=== PATIENT | female | born 1990 | race Caucasian/White ===

== ENCOUNTER 2024-10-09 15:45 | Emergency (ER) | payer OTHER, SELFPAY ==
--- NOTE | ~2024-10-09 | US_ITS ---
CLINICAL HISTORY: pain and swelling Left lower extremity venous ultrasound. Findings: The deep venous system is normally compressible. There is color Doppler flow with augmentation. Impression: No DVT is identified. This document has been electronically signed by: Guilherme Macdonald MD on 10/09/2024 18:35:22
[2024-10-09 16:51] VITALS: BP 129/66; PULSE 95; RESP 18; TEMP 36.5; O2SAT 95; BMI 57.3
--- NOTE | 2024-10-09 16:53 | ED_ITS ---
HPI - General Adult General Chief complaint: Extremity Injury, Lower Stated complaint: latoya. lower leg edema ? cellulitis Time Seen by Provider: 10/10/24 01:18 Source: patient Mode of arrival: ambulatory Limitations: no limitations History of Present Illness ED Provider: HPI narrative: Patient with chronic dependent leg edema with recurrent cellulitis been to different hospital comes here for similar leg swelling with slight warmth feeling of the left leg for last several days no fever no chills patient has had venous Doppler done prior to my evaluation which was normal labs were also normal Related Data Previous Rx's ?Medication ?Instructions ?Recorded cephalexin 500 mg capsule 500 mg PO QID 10 days #40 caps 10/10/24 doxycycline hyclate 100 mg tablet 100 mg PO BID #20 tabs 10/10/24 Allergies Allergy/AdvReac Type Severity Reaction Status Date / Time No Known Allergies Allergy Verified 10/09/24 16:56 Review of Systems 2 Review of Systems: Yes all other systems are reviewed and are negative [facility] Social History Social History Alcohol intake: former Smoked in Last 30 Days: No Use of substances other than those prescribed or required for medical reasons: No Any prior treatment program specific to substance use: No Advance Directives: No Do you have a plan to hurt others: No Plan Patient : No Physical Exam ED Vital Signs: Vital Signs - 24 hr 10/09/24 16:51 10/09/24 22:38 10/10/24 00:33 Temperature 97.7 F 98.2 F 98.1 F Pulse Rate 95 83 97 Respiratory Rate 18 16 16 Blood Pressure 129/66 142/80 H 141/83 H Pulse Oximetry 95 93 94 Oxygen Delivery Method Room Air Room Air Room Air 10/10/24 01:49 Temperature 98.1 F Pulse Rate 97 Respiratory Rate 16 Blood Pressure 141/83 H Pulse Oximetry 94 Oxygen Delivery Method Room Air BMI result Body Mass Index 57.3 Appearance: Alert. Oriented X3. No acute distress. Eyes: PERRLA, No Nystagmus ENT: Pharynx normal. Oral Mucosa moist Neck: Normal inspection. Neck supple. CVS: Normal heart rate and rhythm. Pulses normal. Respiratory: No respiratory distress. Equal air entry bilateral, no wheezing/rales/rhonchi Abdomen: Soft and nontender. Bowel sounds are present, no mass palpable, no CVA tenderness Skin: Skin warm and dry. Normal skin color. Normal skin turgor. Extremities: Bilateral pedal edema, left leg erythematous as compared to right with 1 small blister and lesions suggestive of? MRSA infection No calf tenderness Neuro: Oriented X 3. No motor deficit. No sensory deficit.No cerebellar signs , cranial nerves II-XII intact Course Course Course Narrative: This is a rapid medical exam performed by Yaya Botello NP: Additional HPI, ROS, PE not included below will be deferred to primary provider. Patient is a 33-year-old female with history of PE in the past, on Eliquis presenting with complaint of lower extremity edema. Left leg worse than right, concerned for DVT and cellulitis. Plan: Labs, U/S Medications Administered Discontinued Medications Generic Name Dose Route Start Last Admin Trade Name Freq PRN Reason Stop Dose Admin Cephalexin HCl 500 mg 10/10/24 01:28 10/10/24 01:45 Cephalexin 500 Mg Capsule PO 10/10/24 01:29 500 mg ONCE ONE Administration Doxycycline Monohydrate 100 mg 10/10/24 01:28 10/10/24 01:45 Doxycycline Monohydrate 100 Mg Capsule PO 10/10/24 01:29 100 mg ONCE ONE Administration Medical Decision Making Medical Decision Making [facility] Narrative: Patient has chronic dependent leg edema labs are stable BNP negative for CHF patient already on diuretic her venous Doppler was negative for DVT will prescribe doxycycline cephalexin advised to follow up with her PCP Lab Data MDM Lab Attestation statement: I reviewed the patient's lab results. 10/10/24 00:26 10/10/24 00:27 Labs: Lab Results 10/10/24 10/10/24 Range/Units 00:26 00:27 WBC 8.6 (4.8-10.8) X10*3/uL RBC 4.81 (4.20-5.50) X10*6/uL Hgb 13.3 (12.0-16.0) g/dl Hct 40.5 (37.0-47.0) % MCV 84.2 (80.0-98.0) fL MCH 27.7 (27.0-33.0) pg MCHC 32.8 (31.0-35.0) g/dl RDW 13.7 (11.0-16.0) % Plt Count 281 (160-400) X10*3/uL MPV 9.3 L (9.4-12.3) fL Immature Gran % (Auto) 0.2 (0.0-0.4) % Neut % (Auto) 33.9 L (45-73) % Lymph % (Auto) 52.8 H (20-40) % Levy % (Auto) 8.0 (2-11) % Eos % (Auto) 4.1 H (0-4) % Baso % (Auto) 1.0 (0-2) % Lymph # (Auto) 4.6 (1.2-4.9) X10*3/uL Levy # (Auto) 0.7 (0.1-1.2) X10*3/uL Eos # (Auto) 0.4 (0.0-0.4) X10*3/uL Baso # (Auto) 0.1 (0.0-0.2) X10*3/uL Abs Immat Gran (auto) 0.02 (0.00-0.03) X10*3/uL Absolute Neuts (auto) 2.9 (2.0-8.3) x10*3/uL Absolute Nucleated RBC 0.000 (0.0-0.012) X10*3/uL Nucleated RBC % (auto) 0.0 (0.0-0.2) /100WBC PT 12.8 H (10.9-12.4) SEC INR 1.1 (0.9-1.1) Sodium 141 (135-145) mmol/L Potassium 3.9 (3.3-5.1) mmol/L Chloride 100 (96-108) mmol/L Carbon Dioxide 29 (22-29) mmol/L Anion Gap 16 (12-20) BUN 10 (9-16) mg/dL Creatinine 1.02 (0.5-1.4) mg/dL Estim Creat Clear Calc 126.1 Estimated GFR > 60 Random Glucose 84 (60-115) mg/dL Calcium 9.4 (8.4-10.2) mg/dL Total Bilirubin 0.3 (0.0-1.0) mg/dL AST 49 H (5-31) U/L ALT 45 H (0-31) U/L Alkaline Phosphatase 93 (39-117) U/L C-Reactive Protein 2.55 H (< or = 0.50) mg/dL B-Natriuretic Peptide < 10 (<100) pg/mL Total Protein 8.4 H (6.5-8.0) g/dL Albumin 3.8 (3.5-5.0) g/dL Discharge Plan Discharge Clinical Impression: Chronic cellulitis, Leg edema Patient Disposition: Home, Self-Care Instructions: Cellulitis (ED), Leg Edema (ED) Additional Instructions: Continue your water pill , keep your legs elevated Antibiotics as prescribed Follow up with wound clinic Prescriptions: New cephalexin 500 mg capsule 500 mg PO QID 10 Days Qty: 40 0RF doxycycline hyclate 100 mg tablet 100 mg PO BID Qty: 20 0RF Referrals: Ronald Mittal MD [Physician] - 1 week Interventions: ED Discharge Assessment Last Done: 10/10/24 01:49 Discharge Date/Time: 10/10/24 01:50 Print Language: Vietnamese
[2024-10-09 22:38] VITALS: BP 142/80; PULSE 83; RESP 16; TEMP 36.8; O2SAT 93
[2024-10-10 00:33] VITALS: BP 141/83; PULSE 97; RESP 16; TEMP 36.7; O2SAT 94
[2024-10-10 00:33] LABS: MANUAL DIFF FLAG NO
--- OUTSIDE RECORDS SUMMARY | 2024-10-10 00:34 | XMS_ITS | Encounter Summary ---
Author Organization [facility] Address [address] [place] [address] Care Team Providers Care Water Control Supervisor Name Role Phone Virgil Arellano MD Primary Care Provider [phone] Shanice Deleon MD Primary Care Provider [phone] Virgil Arellano MD Primary Care Provider [phone] Encounter Details Date Type Department Care Team (Late st Contact Info) Description 10/06/[address] Orders [address] [facility] [address] [place] [address] Virgil Arellano MD [address] [place], [place] [id number] Social History Tobacco Use Types Packs/Day Years Used Date Smoking Tobacco: Every Day Cigarettes Smokeless Tobacco: Never Alcohol Use Standard Drinks/Week Comments No 0 (1 standard drink = 0.6 oz pur e alcohol) occ Comments No Sex and Gender Information Value Date Recorded Sex Assigned at Not on file Legal Sex Female 10:18 PM EDT Gender Identity Not on file Sexual Orientation Not on file Occupation Industry Job Start Date Job End Date [employer] Not on file Not on file Not on file documented as of this encounter Progress Notes * Ceci Cabrera - 10/06/2014 3:38 PM ESTQuick Note: See epic note * Ely Arevalo PA - 10/06/2014 3:29 PM Jayy Note: Please let Franck know her WBC count has normalized. Thanks. documented in this encounter Plan of Treatment Not on file documented as of this encounter Goals Goal Patient Goal Type Associated Problems Recent Progress Patient-Stated? Author Blood Pressure < 140/90 Blood Pressure 126/80(2015 9:25 AM EDT) No Rica Early Quit smoking / using tobacco Lifestyle No Rica Early documented as of this encounter Procedures * Due to [place] [employer] law, this organization might not be sharing negative HIV tests. Procedure Name Priority Date/Time Associated Diagnosis Comments CBC INCLUDES DIFFERENTIAL AND PLATELET COUNT Routine 10/06/2014 10:49 AM EST Abnormal complete blood count documented in this encounter Results * Due to [place] [employer] law, this organization might not be sharing negative HIV tests. * CBC INCLUDES DIFFERENTIAL AND PLATELET COUNT (10/06/2014 10:49 AM EST) WBC 7.6 3.8 - 10.8 Thousand/u L [facility] Comment:{WHITE BLOOD CELL CO UNT {[id number]) RBC 4.51 3.80 - 5.10 Million/uL [facility] Comment:{RED BLOOD CELL COUN T {[id number]) Hemoglobin 14.1 11.7 - 15.5 g/dL [facility] Comment:{HEMOGLOBIN {[id number]) Hematocrit 41.2 35.0 - 45.0 % [facility] Comment:{HEMATOCRIT {[id number]) MCV 91.4 80.0 - 100.0 fL [facility] Comment:{MCV {[id number]) MCH 31.4 27.0 - 33.0 pg [facility] Comment:{MCH {[id number]) MCHC 34.3 32.0 - 36.0 g/dL [facility] Comment:{MCHC {[id number]) RDW 12.6 11.0 - 15.0 % [facility] Comment:{RDW {[id number]) PLT 348 140 - 400 Thousand/u L [facility] Comment:{PLATELET COUNT {[id number]) MPV 8.3 7.5 - 11.5 fL [facility] Comment:{MPV {[id number]) Neutrophils # 4347 1500 - 7800 cells/uL [facility] Comment:{ABSOLUTE NEUTROPHIL S {[id number]) Lymphocytes # 2151 850 - 3900 cells/uL [facility] Comment:{ABSOLUTE LYMPHOCYTE S {[id number]) Monocytes # 616 200 - 950 cells/uL [facility] Comment:{ABSOLUTE MONOCYTES {[id number]) Eosinophils # 448 15 - 500 cells/uL [facility] Comment:{ABSOLUTE EOSINOPHIL S {[id number]) Basophils # 38 0 - 200 cells/uL [facility] Comment:{ABSOLUTE BASOPHILS {[id number]) Neutrophils % 57.2 % [facility] Comment:{NEUTROPHILS {[id number]) Lymphocytes % 28.3 % [facility] Comment:{LYMPHOCYTES {[id number]) Monocytes % 8.1 % [facility] Comment:{MONOCYTES {[id number]) Eosinophils % 5.9 % [facility] Comment:{EOSINOPHILS {[id number]) Basophils % 0.5 % [facility] Comment:{BASOPHILS {[id number]) 10/06/2014 10:4 9 AM EST 10/06/2014 2:19 PM EST Narrative Resulting Agency Comment [id number] us Virgil Arellano MD LAB SAME DAY RESULT Final Res ult [facility] [address] [place] [address] documented in this encounter Visit Diagnoses Diagnosis Abnormal complete blood count Other abnormal blood chemistry documented in this encounter Care Teams Water Control Supervisor Relationship Specialty Start Date End Date Virgil Arellano MD [address] [place] [address] PCP - General 11/11/05 08/19/16 Shanice Deleon MD [address] [place] [address] PCP - General Family Medicine 08/20/16 10/25/16 Virgil Arellano MD [address] [place] [address] PCP - General Family Medicine 10/26/16 07/04/17 documented as of this encounter
--- OUTSIDE RECORDS SUMMARY | 2024-10-10 00:34 | XMS_ITS | Encounter Summary ---
Author Organization [facility] Address [address] [place] [address] Care Team Providers Care Spring Clipper Name Role Phone Virgil Arellano MD Primary Care Provider [phone] Shanice Deleon MD Primary Care Provider Virgil Arellano MD Primary Care Provider [phone] Encounter Details Date Type Department Care Team (Late st Contact Info) Description 10/29/[address] [facility] [address] [phone] Mercedes Best PA Social History Tobacco Use Types Packs/Day Years [...] Job Start Date Job End Date Melba donsowmya Not on file Not on file Not on file documented as of this encounter Progress Notes * Mercedes Best PA - 11/02/2014 9:09 AM EDTQuick Note: Normal letter sent/ My chart message sent documented in this encounter Plan of Treatment Not on file documented as of this encounter Goals Goal Patient Goal Type Associated Problems Recent Progress Patient-Stated? Author Blood Pressure < 140/90 Blood Pressure 126/80(2015 9:25 AM EDT) No Rica Early Quit smoking / using tobacco Lifestyle No Rica Early documented as of this encounter Procedures * Due to [place] [employer] law, this organization might not be sharing negative HIV tests. Procedure Name Priority Date/Time Associated Diagnosis Comments STREPTOCOCCUS, GROUP A CULTURE Routine 10/29/2014 4:40 PM EDT Sore throat documented in this encounter Results * Due to [place] [employer] law, this organization might not be sharing negative HIV tests. * STREPTOCOCCUS, GROUP A CULTURE (10/29/2014 4:40 PM EDT) Culture, Streptococci Group A, Throat SEE NOTE [facility] Comment: {STREPTOCOCCUS, GROUP A CULTURE {[id number]) ??STREPTOCOCCUS, GROUP A CULTURE ??MICRO NUMBER: ?[id number] ??TEST STATUS: ? FINAL ??SPECIMEN SOURCE: ?? NOT GIVEN ??SPECIMEN QUALITY: ??ADEQUATE ??RESULT: ?No beta hemolytic Streptococci isolated 10/29/2014 4:40 PM EDT 10/29/2014 9:38 PM EDT Narrative Resulting Agency Comment [id number] Virgil Arellano MD LABORATORY Final Result Performing Organization Address City/State/[facility] Co de Phone Number [facility] [address] [place] [address] documented in this encounter Visit Diagnoses Diagnosis Sore throat Acute pharyngitis documented in this encounter Care Teams Spring Clipper Relationship Specialty Start Date End Date Virigl Arellano MD [address] [place] [address] PCP - General 11/11/05 08/19/16 Shanice Deleon MD [address] [place] [address] PCP - General Family Medicine 08/20/16 10/25/16 Virgil Arellano MD [address] [place] [address] PCP - General Family Medicine 10/26/16 07/04/17 documented as of this encounter
--- OUTSIDE RECORDS SUMMARY | 2024-10-10 00:34 | XMS_ITS | Encounter Summary ---
Author Organization [facility] Address [address] [place] [address] Care Team Providers Care Buck Presser Name Role Phone Virgil Arellano MD Primary Care Provider [phone] Shanice Deleon MD Primary Care Provider [phone] Virgil Arellano MD Primary Care Provider [phone] Encounter Details Date Type Department Care Team (Late st Contact Info) Description 03/24/[address] [facility] [address] [place] [address] Virgil Arellano MD [address] [place] [address] Social History Tobacco Use Types Packs/Day Years Used Date Smoking Tobacco: Every Day Cigarettes Smokeless Tobacco: Never Comments:Less than 1/2 ppd Alcohol Use Standard Drinks/Week Comments No 0 [...] as of this encounter Progress Notes * Carlota Cadena - 03/25/2014 8:14 PM EDTQuick Note: . documented in this encounter Plan of Treatment Not on file documented as of this encounter Procedures * Due to [place] [employer] law, this organization might not be sharing negative HIV tests. Procedure Name Priority Date/Time Associated Diagnosis Comments CBC INCLUDES DIFFERENTIAL AND PLATELET COUNT Routine 03/24/2014 11:55 AM EDT Elevated WBC count documented in this encounter Results * Due to [place] [employer] law, this organization might not be sharing negative HIV tests. * (ABNORMAL) CBC INCLUDES DIFFERENTIAL AND PLATELET COUNT (03/24/2014 11:55 AM EDT) WBC 10.9(H) 3.8 - 10.8 Thousand/ uL [facility] Comment:{WHITE BLOOD CELL CO UNT {[id number]) RBC 4.83 3.80 - 5.10 Million/u L [facility] Comment:{RED BLOOD CELL COUN T {[id number]) Hemoglobin 15.4 11.7 - 15.5 g/dL [facility] Comment:{HEMOGLOBIN {[id number]) Hematocrit 45.2(H) 35.0 - 45.0 % [facility] Comment:{HEMATOCRIT {[id number]) MCV 93.6 80.0 - 100.0 fL [facility] Comment:{MCV {[id number]) MCH 31.8 27.0 - 33.0 pg [facility] Comment:{MCH {[id number]) MCHC 34.0 32.0 - 36.0 g/dL [facility] Comment:{MCHC {[id number]) RDW 12.5 11.0 - 15.0 % [facility] Comment:{RDW {[id number]) PLT 365 140 - 400 Thousand/ uL [facility] Comment:{PLATELET COUNT {[id number]) MPV 8.6 7.5 - 11.5 fL [facility] Comment:{MPV {[id number]) Neutrophils # 7826(H) 1500 - 7800 cells/uL [facility] Comment:{ABSOLUTE NEUTROPHIL S {[id number]) Lymphocytes # 2093 850 - 3900 cells/uL [facility] Comment:{ABSOLUTE LYMPHOCYTE S {[id number]) Monocytes # 403 200 - 950 cells/uL [facility] Comment:{ABSOLUTE MONOCYTES {[id number]) Eosinophils # 534(H) 15 - 500 cells/uL [facility] Comment:{ABSOLUTE EOSINOPHIL S {[id number]) Basophils # 44 0 - 200 cells/uL [facility] Comment:{ABSOLUTE BASOPHILS {[id number]) Neutrophils % 71.8 % [facility] Comment:{NEUTROPHILS {[id number]) Lymphocytes % 19.2 % [facility] Comment:{LYMPHOCYTES {[id number]) Monocytes % 3.7 % [facility] Comment:{MONOCYTES {[id number]) Eosinophils % 4.9 % [facility] Comment:{EOSINOPHILS {[id number]) Basophils % 0.4 % [facility] Comment:{BASOPHILS {[id number]) 03/24/2014 11:5 5 AM EDT 03/24/2014 5:16 PM EDT Narrative Resulting Agency Comment [id number] us Virgil Arellano MD LAB SAME DAY RESULT Final Res ult [facility] [address] [place] [address] documented in this encounter Visit Diagnoses Diagnosis Elevated WBC count Leukocytosis, unspecified documented in this encounter Care Teams Buck Presser Relationship Specialty Start Date End Date Virgil Arellano MD [address] [place] [address] PCP - General 11/11/05 08/19/16 Shanice Deleon MD [address] [place] [address] PCP - General Family Medicine 08/20/16 10/25/16 Virgil Arellano MD [address] [place] [address] PCP - General Family Medicine 10/26/16 07/04/17 documented as of this encounter
--- OUTSIDE RECORDS SUMMARY | 2024-10-10 00:34 | XMS_ITS | Encounter Summary ---
Author Organization [facility] Address [address] [place] [address] Care Team Providers Care Assistant Loan Processor Name Role Phone Virgil Arellano MD Primary Care Provider [phone] Shanice Deleon MD Primary Care Provider [phone] Virgil Arellano MD Primary Care Provider [phone] Encounter Details Date Type Department Care Team (Late st Contact Info) Description 03/07/2010 Orders Only [address] [address] Virgil Arellano MD [address] [place], [place] [phone] Social History Tobacco Use Types Packs/Day Years Used Date Smoking Tobacco: Every Day Cigarettes Comments:Less than 1/2 ppd Alcohol Use Standard Drinks/Week Comments No 0 (1 standard drink = 0.6 oz pur e alcohol) Comments No Sex and Gender Information Value Date Recorded Sex Assigned at Not on file Legal Sex Female 10:18 PM EDT Gender Identity Not on file Sexual Orientation Not on file documented as of this encounter Progress Notes * Virgil Arellano MD - 04/04/2010 6:53 PM EDTQuick Note: Discuss at ov. documented in this encounter Plan of Treatment Pending Results Name Type Priority Associated Diagnoses Date /Time METANEPHRINES, FRACTIONATED, LC/MS/MS, 24-HOUR URINE Lab Routine 03/07/2010 documented as of this encounter Procedures * Due to [place] [employer] law, this organization might not be sharing negative HIV tests. Procedure Name Priority Date/Time Associated Diagnosis Comments NON-CODED [facility] PROCEDURE Routine 03/07/2010 METANEPHRINE UR RAND Routine 03/07/2010 Hypertension METANEPHRINES, FRACTIONATED, LC/MS/MS, 24-HOUR URINE Routine 03/07/2010 documented in this encounter Results * Due to [place] [employer] law, this organization might not be sharing negative HIV tests. * NON-CODED [facility] PROCEDURE (03/07/2010) ASSAY NAME SEE TEXT [facility] Comment:METANEPHRINES, FRACT IONATED, LCMSMS, RANDOM URINE ASSAY RESULT SEE BELOW SEE BELOW [facility] Comment: METANEPHRINE ? 77 ? MCG/G CR THIS SPECIMEN WAS SUBMITTED WITH A PH GREATER THAN 5.0. ??OPTIMUM PH FOR THIS ASSAY IS 1.0-5.0. IMPROPER PRESERVATION MAY COMPROMISE THE VALIDITY OF THE ASSAY. UNABLE TO FLAG ABNORMAL RESULT(S), PLEASE REFER TO REFERENCE RANGE(S) BELOW: REFERENCE RANGES FOR METANEPHRINES, RANDOM URINE: (MCG/G CREATININE) AGE 3 MONTHS-4 YEARS ??NOT ESTABLISHED 5 - 9 YEARS ?106 - 527 10 - 13 YEARS ?34 - 357 14 - 17 YEARS ?24 - 302 18 - 29 YEARS ?39 - 146 30 - 39 YEARS ?32 - 134 40 - 49 YEARS ?33 - 192 >= 50 YEARS ?21 - 153 ASSAY RESULT SEE BELOW SEE BELOW [facility] Comment: NORMETANEPHRINE ? 177 ? MCG/G CR UNABLE TO FLAG ABNORMAL RESULT(S), PLEASE REFER TO REFERENCE RANGE(S) BELOW: REFERENCE RANGES FOR NORMETANEPHRINES, RANDOM URINE: (MCG/G CREATININE) AGE 3 MONTHS-4 YEARS ??NOT ESTABLISHED 5 - 9 YEARS ?149 - 781 10 - 13 YEARS ?38 - 523 14 - 17 YEARS ?14 - 302 18 - 29 YEARS ?91 - 365 30 - 39 YEARS ?67 - 390 40 - 49 YEARS ?85 - 514 >= 50 YEARS ? 108 - 524 ASSAY RESULT SEE BELOW SEE BELOW [facility] Comment: METANEPHRINES, TOTAL ?254 ? MCG/G CR UNABLE TO FLAG ABNORMAL RESULT(S), PLEASE REFER TO REFERENCE RANGE(S) BELOW: REFERENCE RANGES FOR TOTAL METANEPHRINES, RANDOM URINE: (MCG/G CREATININE) AGE 3 MONTHS-4 YEARS ??NOT ESTABLISHED 5 - 9 YEARS ?255 - 1167 10 - 13 YEARS ?86 - 845 14 - 17 YEARS ?39 - 578 18 - 29 YEARS ? 156 - 442 30 - 39 YEARS ?94 - 445 40 - 49 YEARS ? 155 - 608 >= 50 YEARS ? 149 - 603 A FOUR FOLD ELEVATION OF URINARY NORMETANEPHRINES IS EXTREMELY LIKELY TO BE DUE TO A TUMOR, WHILE A FOUR FOLD ELEVATION OF URINARY METANEPHRINES IS HIGHLY SUGGESTIVE, BUT NOT DIAGNOSTIC OF THE TUMOR. MEASUREMENT OF PLASMA METANEPHRINES AND CHROMOGRANIN A IS RECOMMENDED FOR CONFIRMATION. ASSAY RESULT SEE BELOW SEE BELOW [facility] Comment: CREATININE, RANDOM URINE ? 215.8 ?MG/DL UNABLE TO FLAG ABNORMAL RESULT(S), PLEASE REFER TO REFERENCE RANGE(S) BELOW: REFERENCE RANGES FOR CREATININE, RANDOM URINE: AGE ?MG/DL --- ?----- 0-6 MONTHS ?2-32 7-11 MONTHS ? 2-36 1-2 YEARS ? 2-128 3-8 YEARS ? 2-149 9-12 YEARS ?2-183 >12 YEARS: MALE: ? 20-370 FEMALE: ? 20-320 UNITS NOT AVAIL. [facility] REFERENCE RANGE NOT AVAIL. [facility] COMMENT NOT AVAIL. [facility] TEST REFERRED TO NOT AVAIL. [facility] VENDOR TEST CODE [id number] [facility] VENDOR [facility] 03/07/2010 03/07/2010 10: 29 PM EDT Narrative [facility] - 03/30/2010 6:47 PM EDT Report Comments: MET SENT OUT TO [facility] FOR TESTING METANEPHRINES, FRACTIONATED, LC/MS/MS ADDED 03/08/2010 24-HOUR URINE ADDED 03/08/2010 CANCELLED MET TESTING FOR RADNOR. METANEPHRINES BEING PERFORMED AT [facility]. Additional Result Information UNITS: RESULT NOT AVAILABLE REFERENCE RANGE: RESULT NOT AVAILABLE COMMENT: RESULT NOT AVAILABLE TEST REFERRED TO: RESULT NOT AVAILABLE us Virgil Arellano MD LABORATORY Edited [facility] [address] [place] [address] * METANEPHRINE UR RAND (03/07/2010) CREATININE (URINE) TNP MG/DL Q [facility] METANEPHRINE (URINE) TNP [facility] Comment:UNITS: UG/G CREATINI NE NORMETANEPHRINE (URINE) TNP [facility] Comment:UNITS: UG/G CREATINI NE TOTAL METANEPHRINES, RANDOM URINE TNP [facility] Comment:UNITS: UG/G CREATINI NE 03/07/2010 03/07/2010 10: 29 PM EDT Narrative [facility] - 03/08/2010 3:38 PM EDT Report Comments: MET SENT OUT TO [facility] FOR TESTING METANEPHRINES, FRACTIONATED, LC/MS/MS ADDED 03/08/2010 24-HOUR URINE ADDED 03/08/2010 CANCELLED MET TESTING FOR RADNOR. METANEPHRINES BEING PERFORMED AT [facility]. us Virgil Arellano MD LABORATORY Final Result [facility] [address] [place] [address] documented in this encounter Visit Diagnoses Diagnosis Hypertension Unspecified essential hypertension documented in this encounter Care Teams Assistant Loan Processor Relationship Specialty Start Date End Date Virgil Arellano MD [address] [place] [address] PCP - General 11/11/05 08/19/16 Shanice Deleon MD [address] [place] [address] PCP - General Family Medicine 08/20/16 10/25/16 Virgil Arellano MD [address] [place] [address] PCP - General Family Medicine 10/26/16 07/04/17 documented as of this encounter
--- OUTSIDE RECORDS SUMMARY | 2024-10-10 00:34 | XMS_ITS | Encounter Summary ---
Author Organization [facility] Address [address] [place] [address] Care Team Providers Care Tile Edger Name Role Phone Virgil Arellano MD Primary Care Provider [phone] Shanice Deleon MD Primary Care Provider [phone] Virgil Arellano MD Primary Care Provider [phone] Encounter Details Date Type Department Care Team (Late st Contact Info) Description 12/06/2010 [facility] Only [address] [address] Virgil Arellano MD [address] [place], [place] [id number] Social History Tobacco Use Types Packs/Day Years [...] Progress Notes * Virgil Arellano MD - 12/07/2010 7:52 AM EDTQuick Note: Recheck fasting lipids and A1C. documented in this encounter Plan of Treatment Not on file documented as of this encounter Procedures * Due to [place] state law, this organization might not be sharing negative HIV tests. Procedure Name Priority Date/Time Associated Diagnosis Comments CHOLESTEROL, LDL (DIRECT) Routine 12/06/2010 LIPID PANEL + CARDIAC RISK WITH REFLEX TO LDL DIRECT Routine 12/06/2010 Other and unspecified hyperlipidemia CBC W/O DIFFERENTIAL Routine 12/06/2010 Routine general medical examination at a [facility] ASPARTATE AMINOTRANSFERASE (AST), SERUM Routine 12/06/2010 Other and unspecified hyperlipidemia TSH, THYROTROPIN Routine 12/06/2010 Hypothyroidism documented in this encounter Results * Due to [place] state law, this organization might not be sharing negative HIV tests. * CHOLESTEROL, LDL (DIRECT) (12/06/2010) LDL Cholesterol, Direct 119 62 - 130 MG/DL [facility] 12/06/2010 12/06/2010 10: 20 PM EDT Virgil Arellano MD LABORATORY Final Result Performing Organization Address [facility] Co de Phone Number [facility] [address] [place] [address] * TSH (THYROTROPIN) (12/06/2010) TSH, THYROTROPIN 1.212 0.50 - 4.30 UIU/ML [facility] 12/06/2010 12/06/2010 10: 20 PM EDT Virgil Arellano MD LABORATORY Final Result Performing Organization Address [facility]/ZIP Co de Phone Number [facility] [address] [place] [address] * ASPARTATE AMINOTRANSFERASE (AST), SERUM (12/06/2010) AST (SGOT) 19 12 - 32 U/L [facility] 12/06/2010 12/06/2010 10: 20 PM EDT Virgil Arellano MD LAB SAME DAY RESULT Final Res ult Performing Organization Address [facility] Co de Phone Number [facility] [address] [place] [address] * (ABNORMAL) LIPID PANEL + CARDIAC RISK WITH REFLEX TO LDL DIRECT (12/06/2010) CHOLESTEROL, TOTAL 216(H) 125 - 170 MG/DL [facility] TRIGLYCERIDES 472(H) 30 - 149 MG/DL [facility] HDL-CHOLESTEROL 30(L) 40 - 77 MG/DL [facility] LDL-CHOLESTEROL SEE TEXT 62 - 130 MG/DL [facility] Comment: INVALID, TRIG GREATER THAN 400 RISK CATEGORY: ??LDL-CHOLESTEROL GOAL CHD AND CHD RISK EQUIVALENTS: ??<100 MULTIPLE (2+) FACTORS: ??<130 ZERO TO ONE RISK FACTOR: ??<160 CHD RELATIVE RISK RATIO (TOTAL/HDL) 7.20(H) 0.0 - 5.0 [facility] Comment:(2.0 X AVERAGE) 12/06/2010 12/06/2010 10: 20 PM EDT Virgil Arellano MD LABORATORY Final Result Performing Organization Address [facility]/[place] de Phone Number [facility] [address] [place] [address] * (ABNORMAL) CBC W/O DIFFERENTIAL (12/06/2010) WHITE BLOOD COUNT 11.2(H) 3.8 - 10.8 THOUS/UL [facility] RBC 4.70 3.80 - 5.10 MIL/UL [facility] Hemoglobin 14.8 11.7 - 15.5 G/DL [facility] HCT (HEMATOCRIT) 43.6 35.0 - 45.0 % [facility] MCV 92.7 80.0 - 100.0 FL [facility] MCH 31.6 27.0 - 33.0 PG [facility] MCHC 34.0 32.0 - 36.0 G/DL [facility] PLATELETS 337 140 - 400 THOUS/UL [facility] RDW 12.3 11.0 - 15.0 % [facility] MPV 8.6 7.5 - 11.5 FL [facility] 12/06/2010 12/06/2010 10: 20 PM EDT us Virgil Aerllano MD LAB SAME DAY RESULT Final Res ult [facility] [address] [place] [address] documented in this encounter Visit Diagnoses Diagnosis Routine general medical examination at a health care facility Other and unspecified hyperlipidemia Hypothyroidism Unspecified hypothyroidism documented in this encounter Care Teams Tile Edger Relationship Specialty Start Date End Date Virgil Arellano MD [address] [place] [address] PCP - General 11/11/05 08/19/16 Shanice Deleon MD [address] [place] [address] PCP - General Family Medicine 08/20/16 10/25/16 Virgil Arellano MD [address] [place] [address] PCP - General Family Medicine 10/26/16 07/04/17 documented as of this encounter
--- OUTSIDE RECORDS SUMMARY | 2024-10-10 00:34 | XMS_ITS | Encounter Summary ---
Author Organization [facility] Address [address] [place] [address] Care Team Providers Care Feed Blender Name Role Phone Virgil Arellano MD Primary Care Provider Shanice Deleon MD Primary Care Provider [phone] Virgil Arellano MD Primary Care Provider [phone] Encounter Details Date Type Department Care Team (Late st Contact Info) Description 11/25/[address] Orders [address] [facility] [address] [place] [address] Virgil Arellano MD [address] [place] [address] Social History Tobacco Use Types Packs/Day Years [...] on file documented as of this encounter Plan of Treatment Not on file documented as of this encounter Goals Goal Patient Goal Type Associated Problems Recent Progress Patient-Stated? Author Blood Pressure < 140/90 Blood Pressure 126/80(2015 9:25 AM EDT) No Rica Early Quit smoking / using tobacco Lifestyle No Rica Early documented as of this encounter Results * Due to [place] state law, this organization might not be sharing negative HIV tests. * US ABDOMEN COMPLETE FC (11/26/2014 8:26 AM EDT) BI-RADS CODE Anatomical Region Laterality Modality Abdomen Ultrasound 11/26/2014 9:17 AM EDT Narrative 11/26/2014 9:17 AM EDT ABDOMINAL ULTRASOUND ?11/26/2014 Clinical History: Right upper quadrant pain, vomiting and diarrhea for 4 days. Findings: Sonographic assessment of the abdomen is limited by the patient's body habitus and considerable intestinal gas. The liver appears to be upper normal in size. No hepatic mass is identified, but the liver could not be definitively evaluated in its entirety. Color flow Doppler confirms hepatopetal portal vein blood flow. The gallbladder is physiologically distended. Allowing for luminal artifacts, no gallstones are identified. There is no thickening or edema of the gallbladder wall, and sonographic Lemus's sign is reportedly negative. The common bile duct measures 2.9 mm in diameter, and there is no dilatation of the intrahepatic biliary tree. The spleen is normal in texture and size exhibiting a length of 10.7 cm. Right and left renal bipolar lengths are 11.5 cm and 11 cm, respectively. Allowing for the aforementioned technical limitations, no renal abnormalities are identified. The head and body of the pancreas appear unremarkable while the tail is obscured. Segmental visualization of the abdominal aorta reveals normal calibers, and the visualized segments of the inferior vena cava are unremarkable. Impression: No abdominal abnormalities demonstrated but with technical limitations as discussed above. Procedure Note Alok Carlson MD - 11/26/2014 ABDOMINAL ULTRASOUND 11/26/2014 Clinical History: Right upper quadrant pain, vomiting and diarrhea for 4 days. Findings: Sonographic assessment of the abdomen is limited by the patient's body habitus and considerable intestinal gas. The liver appears to be upper normal in size. No hepatic mass is identified, but the liver could not be definitively evaluated in its entirety. Color flow Doppler confirms hepatopetal portal vein blood flow. The gallbladder is physiologically distended. Allowing for luminal artifacts, no gallstones are identified. There is no thickening or edema of the gallbladder wall, and sonographic Lemus's sign is reportedly negative. The common bile duct measures 2.9 mm in diameter, and there is no dilatation of the intrahepatic biliary tree. The spleen is normal in texture and size exhibiting a length of 10.7 cm. Right and left renal bipolar lengths are 11.5 cm and 11 cm, respectively. Allowing for the aforementioned technical limitations, no renal abnormalities are identified. The head and body of the pancreas appear unremarkable while the tail is obscured. Segmental visualization of the abdominal aorta reveals normal calibers, and the visualized segments of the inferior vena cava are unremarkable. Impression: No abdominal abnormalities demonstrated but with technical limitations as discussed above. us Virgil Arellano MD IMG US ORDERABLES Final Resul t documented in this encounter Visit Diagnoses Diagnosis RUQ abdominal pain- Primary Abdominal pain, right upper quadrant RUQ abdominal pain Abdominal pain, right upper quadrant documented in this encounter Care Teams Feed Blender Relationship Specialty Start Date End Date Virgil Arellano MD [address] [place] [address] PCP - General 11/11/05 08/19/16 Shanice Deleon MD [address] [place] [address] PCP - General Family Medicine 08/20/16 10/25/16 Virgil Arellano MD [address] [place] [address] PCP - General Family Medicine 10/26/16 07/04/17 documented as of this encounter
--- OUTSIDE RECORDS SUMMARY | 2024-10-10 00:34 | XMS_ITS | Encounter Summary ---
Author Organization [facility] Address [address] [place] [address] Care Team Providers Care Job Training Specialist Name Role Phone Virgil Arellano MD Primary Care Provider [phone] Shanice Deleon MD Primary Care Provider [phone] Virgil Arellano MD Primary Care Provider [phone] Encounter Details Date Type Department Care Team (Late st Contact Info) Description 01/26/2009 [facility] Only [address] [address] Christina Ayala MD Social History Tobacco Use Types Packs/Day Years Used Date Smoking Tobacco: Never Assessed Comments No Sex and Gender Information Value Date Recorded Sex Assigned at Not on file Legal Sex Female 10:18 PM EDT Gender Identity Not on file Sexual Orientation Not on file documented as of this encounter Plan of Treatment Not on file documented as of this encounter Procedures * Due to [place] law, this organization might not be sharing negative HIV tests. Procedure Name Priority Date/Time Associated Diagnosis Comments TSH, THYROTROPIN Routine 01/26/2009 Abnormal Laboratory Test documented in this encounter Results * Due to [place] law, this organization might not be sharing negative HIV tests. * TSH (THYROTROPIN) (01/26/2009) TSH, THYROTROPIN 1.63 0.50 - 4.30 UIU/ML 01/26/2009 01/26/2009 11: 34 PM EDT Narrative 01/27/2009 6:18 AM EDT Report Comments: HEMOLYSIS PRESENT, CHEMISTRY RESULT(S) MAY BE AFFECTED us Christina Ayala MD LABORATORY Final Re sult documented in this encounter Visit Diagnoses Diagnosis Abnormal laboratory test Other abnormal clinical finding documented in this encounter Care Teams Job Training Specialist Relationship Specialty Start Date End Date Virgil Arellano MD [address] [place] [address] PCP - General 11/11/05 08/19/16 Shanice Deleon MD [address] [place] [address] PCP - General Family Medicine 08/20/16 10/25/16 Virgil Arellano MD [address] [place] [address] PCP - General Family Medicine 10/26/16 07/04/17 documented as of this encounter
--- OUTSIDE RECORDS SUMMARY | 2024-10-10 00:34 | XMS_ITS | Encounter Summary ---
Author Organization [facility] Address [address] [place] [address] Care Team Providers Care Criminal Justice Teacher Name Role Phone Virgil Arellano MD Primary Care Provider [phone] Shanice Deleon MD Primary Care Provider [phone] Virgil Arellano MD Primary Care Provider [phone] Encounter Details Date Type Department Care Team (Late st Contact Info) Description 07/06/2014 Orders [address] [facility] [address] [place] [phone] Ely Arevalo PA [address] [place] [address] Social History Tobacco Use Types Packs/Day Years [...] as of this encounter Progress Notes * Rica Early - 07/09/2014 11:05 AM ESTQuick Note: SEE TM * Ely Stanton PA - 07/09/2014 8:55 AM ESTQuick Note: Strep culture reveals growth of a type of bacteria that typically resolves without antibiotics. If patient is improving, should should complete Pen VK. If patient is not improving, she may d/c antibiotics. Thanks. documented in this encounter Plan of Treatment Not on file documented as of this encounter Goals Goal Patient Goal Type Associated Problems Recent Progress Patient-Stated? Author Blood Pressure < 140/90 Blood Pressure 126/80(2015 9:25 AM EDT) No Rica Early Quit smoking / using tobacco Lifestyle No Rica Early documented as of this encounter Procedures * Due to [place] law, this organization might not be sharing negative HIV tests. Procedure Name Priority Date/Time Associated Diagnosis Comments STREPTOCOCCUS, GROUP A CULTURE Routine 07/06/2014 4:35 PM EST Acute pharyngitis documented in this encounter Results * Due to [place] law, this organization might not be sharing negative HIV tests. * STREPTOCOCCUS, GROUP A CULTURE (07/06/2014 4:35 PM EST) STREPTOCOCCUS, GROUP A CULTURE SEE NOTE [facility] Comment: {STREPTOCOCCUS, GROUP A CULTURE {[id number]) ??STREPTOCOCCUS, GROUP A CULTURE ??MICRO NUMBER: ?[id number] ??TEST STATUS: ? FINAL ??SPECIMEN SOURCE: ?? THROAT ??SPECIMEN QUALITY: ??ADEQUATE ??RESULT: ?Heavy growth of Beta hemolytic streptococcus, not Group A 07/06/2014 4:35 PM EST 07/06/2014 10:23 PM EST Narrative Resulting Agency Comment [id number] Virgil Arellano MD LABORATORY Final Result Performing Organization Address City/State/[facility] Co de Phone Number [facility] [address] [place] [address] documented in this encounter Visit Diagnoses Diagnosis Acute pharyngitis documented in this encounter Care Teams Criminal Justice Teacher Relationship Specialty Start Date End Date Virgil Arellano MD [address] [place] [address] PCP - General 11/11/05 08/19/16 Shanice Deleon MD [address] [place] [address] PCP - General Family Medicine 08/20/16 10/25/16 Virgil Arellano MD [address] [place] [address] PCP - General Family Medicine 10/26/16 07/04/17 documented as of this encounter
--- OUTSIDE RECORDS SUMMARY | 2024-10-10 00:34 | XMS_ITS | Encounter Summary ---
Author Organization [facility] Address [address] [place] [address] Care Team Providers Care Edge Finisher Name Role Phone Virgil Arellano MD Primary Care Provider [phone] Shanice Deleon MD Primary Care Provider [phone] Virgil Arellano MD Primary Care Provider [phone] Encounter Details Date Type Department Care Team (Late st Contact Info) Description 11/25/[address] [facility] [facility] [facility] [address] [place] [phone] Ely Arevalo PA [address] [address] Social History Tobacco Use Types Packs/Day Years [...] as of this encounter Progress Notes * Ely Arevalo PA - 11/26/2014 9:03 PM EDTQuick Note: Noted, no changes needed. * Christina Garcia - 11/26/2014 9:52 AM EDTQuick Note: See TM * Ely Arevalo PA - 11/26/2014 9:44 AM EDTQuick Note: Please let patient know that abdominal ultrasound was somewhat limited due to bowel gas but overallwas normal, gallbladder appeared normal. Blood counts were normal, including white blood cell count(a marker of infection). Electrolytes revealed elevated creatinine at 1.99, indicating dehydration.Sodium, chloride, and calcium slightly low, due to vomiting and diarrhea. Her liver function tests are slightly elevated, which could be due to being overweight. Patient needs to try to push the fluids as much as possible. Please repeat a basic metabolic panel on Sunday. If not able to take PO or is continuing to have vomiting or diarrhea, she does need to be re-evaluated in our office/urgent care and IV fluids may be needed, especially given elevated creatinine. documented in this encounter Plan of Treatment Not on file documented as of this encounter Goals Goal Patient Goal Type Associated Problems Recent Progress Patient-Stated? Author Blood Pressure < 140/90 Blood Pressure 126/80(2015 9:25 AM EDT) No Rica Early Quit smoking / using tobacco Lifestyle No Rica Early documented as of this encounter Procedures * Due to [place] state law, this organization might not be sharing negative HIV tests. Procedure Name Priority Date/Time Associated Diagnosis Comments URINALYSIS, DIP ONLY STAT (All results called to provider) 11/25/2014 3:34 PM EDT Vomiting Diarrhea CULTURE, URINE, ROUTINE Routine 11/25/2014 2:52 PM EDT Vomiting Diarrhea CBC INCLUDES DIFFERENTIAL AND PLATELET COUNT Routine 11/25/2014 2:52 PM EDT Vomiting Diarrhea LIPASE, SERUM Routine 11/25/2014 2:52 PM EDT Vomiting Diarrhea AMYLASE, SERUM Routine 11/25/2014 2:52 PM EDT Vomiting Diarrhea URINALYSIS, MICROSCOPIC Routine 11/25/2014 2:52 PM EDT Vomiting Diarrhea COMPREHENSIVE METABOLIC PANEL WITH GFR Routine 11/25/2014 2:52 PM EDT Vomiting Diarrhea documented in this encounter Results * Due to [place] state law, this organization might not be sharing negative HIV tests. * (ABNORMAL) URINALYSIS, DIP ONLY ( SITE STAT ONLY) (11/25/2014 3:34 PM EDT) COLOR (URINE) jona [facility] (CLIA# [id number]) APPEARANCE (URINE) cloudy [facility] (CLIA# [id number]) SPECIFIC GRAVITY 1.010 1.001 - 1.035 [facility] (CLIA# [id number]) PH (URINE) 6.5 5.0 - 8.0 [facility] (CLIA# [id number]) PROTEIN (URINE) 1+(A) Neg [facility] (CLIA# [id number]) GLUCOSE (URINE) trace(A) Neg [facility] (CLIA# [id number]) Ketones (Urine) negative Neg [facility] (CLIA# [id number]) BILIRUBIN (URINE) negative Neg [facility] (CLIA# [id number]) BLOOD (URINE) trace(A) Neg [facility] (CLIA# [id number]) WBC (URINE) trace(A) Neg [facility] (CLIA# [id number]) NITRITE (URINE) negative Neg [facility] (CLIA# [id number]) Urine specimen obtained by clean catch procedure (specimen) 11/25/2014 3:34 PM EDT Narrative [facility] (CLIA# [id number]) - 11/25/2014 3:36 PM EDT Micro and culture already ordered per provider. Virgil Arellano MD LAB SAME DAY RESULT Final Res ult Performing Organization Address [facility] de Phone Number [facility] (CLIA# [id number]) [address] [place] [address] * CULTURE, URINE, ROUTINE (11/25/2014 2:52 PM EDT) CULTURE SEE NOTE [facility] Comment: {CULTURE, URINE, ROUTINE {[id number]) ??CULTURE, URINE, ROUTINE ??MICRO NUMBER: ?[id number] ??TEST STATUS: ? FINAL ??SPECIMEN SOURCE: ?? URINE ??SPECIMEN QUALITY: ??ADEQUATE ??RESULT: ?Three or more organisms present, each greater ? than 10,000 cu/mL. May represent normal elizabeth ? contamination from external genitalia. No further ? testing is required. 11/25/2014 2:52 PM EDT 11/25/2014 10:19 PM EDT Narrative Resulting Agency Comment [id number] Virgil Arellano MD LABORATORY Final Result Performing Organization Address [facility] Co de Phone Number [facility] [address] [place] [address] * (ABNORMAL) URINALYSIS, MICROSCOPIC (11/25/2014 2:52 PM EDT) WBC (Urine) 10-20(A) < OR = 5 /HPF [facility] Comment:{WBC {[id number]) RBC (Urine Sed) 0-2 < OR = 2 /HPF [facility] Comment:{RBC {[id number]) SQUAMOUS EPITHELIAL CELLS 10-20(A) < OR = 5 /HPF [facility] Comment:{SQUAMOUS EPITHELIAL CELLS {[id number]) Bacteria (Urine) FEW(A) NONE SEEN /HPF [facility] Comment:{BACTERIA {[id number]) HYALINE CAST 0-5(A) NONE SEEN /LPF [facility] Comment:{HYALINE CAST {[id number]) YEAST FEW(A) NONE SEEN /HPF [facility] Comment:{YEAST {[id number]) 11/25/2014 2:52 PM EDT 11/25/2014 10:19 PM EDT Narrative Resulting Agency Comment [id number] us Virgil Arellano MD LAB SAME DAY RESULT Final Res ult Performing Organization Address [facility] Co de Phone Number [facility] [address] [place] [address] * LIPASE, SERUM (11/25/2014 2:52 PM EDT) LIPASE 40 7 - 60 U/L [facility] Comment:{LIPASE {[id number]) 11/25/2014 2:52 PM EDT 11/25/2014 10:19 PM EDT Narrative Resulting Agency Comment [id number] us Virgil Arellano MD LABORATORY Final Result Performing Organization Address [facility] de Phone Number [facility] [address] [place] [address] * AMYLASE, SERUM (11/25/2014 2:52 PM EDT) AMYLASE 22 21 - 101 U/L [facility] Comment:{AMYLASE {[id number]) 11/25/2014 2:52 PM EDT 11/25/2014 10:19 PM EDT Narrative Resulting Agency Comment [id number] us Virgil Arellano MD LAB SAME DAY RESULT Final Res ult Performing Organization Address [facility] Co de Phone Number [facility] [address] [place] [address] * (ABNORMAL) COMPREHENSIVE METABOLIC PANEL WITH GFR (11/25/2014 2:52 PM EDT) GLUCOSE 90 65 - 99 mg/dL [facility] Comment: {GLUCOSE {[id number]) ? Fasting reference interval UREA NITROGEN (BUN) 40(H) 7 - 25 mg/dL [facility] Comment:{UREA NITROGEN (BUN) {[id number]) CREATININE 1.99(H) 0.50 - 1.10 mg/dL [facility] Comment:{CREATININE {[id number]) EGFR NON-AFR. DUTCH 35(L) > OR = 60 mL/min/1. 73m2 [facility] Comment:{eGFR NON-AFR. AMERI CAN {[id number]) EGFR 40(L) > OR = 60 mL/min/1. 73m2 [facility] Comment:{eGFR AMERIC AN {[id number]) BUN/CREATININE RATIO 20 6 - 22 (calc) [facility] Comment:{BUN/CREATININE RATI O {[id number]) SODIUM 132(L) 135 - 146 mmol/L [facility] Comment:{SODIUM {[id number]) POTASSIUM 4.1 3.5 - 5.3 mmol/L [facility] Comment:{POTASSIUM {[id number]) CHLORIDE 97(L) 98 - 110 mmol/L [facility] Comment:{CHLORIDE {[id number]) CARBON DIOXIDE 25 19 - 30 mmol/L [facility] Comment:{CARBON DIOXIDE {[id number]) CALCIUM 8.1(L) 8.6 - 10.2 mg/dL [facility] Comment:{CALCIUM {[id number]) PROTEIN, TOTAL 7.4 6.1 - 8.1 g/dL [facility] Comment:{PROTEIN, TOTAL {[id number]) ALBUMIN 4.4 3.6 - 5.1 g/dL [facility] Comment:{ALBUMIN {[id number]) GLOBULIN 3.0 1.9 - 3.7 g/dL (calc) [facility] Comment:{GLOBULIN {[id number]) ALBUMIN/GLOBULIN RATIO 1.5 1.0 - 2.5 (calc) [facility] Comment:{ALBUMIN/GLOBULIN RA EVAN {[id number]) BILIRUBIN, TOTAL 1.8(H) 0.2 - 1.2 mg/dL [facility] Comment:{BILIRUBIN, TOTAL {[id number]) ALKALINE PHOSPHATASE 44 33 - 115 U/L [facility] Comment:{ALKALINE PHOSPHATAS E {[id number]) AST (SGOT) 51(H) 10 - 30 U/L [facility] Comment:{AST {[id number]) SGPT (ALT) 41(H) 6 - 29 U/L [facility] Comment:{ALT {[id number]) 11/25/2014 2:52 PM EDT 11/25/2014 10:19 PM EDT Narrative [facility] - 11/26/2014 12:35 AM EDT Please note that this estimated GFR does not include an adjustment for the patient's height or weight, and can therefore, be viewed as reliable only for patients with heights between 60 and 72 . More precise quantification using a 24-hour urine sample or height-based algorithm is recommended for patients outside of this range of height and for those individuals with more precise needs for GFR calculation. Resulting Agency Comment [id number] Virgil Arellano MD LABORATORY Final Result [facility] [address] [place] [address] * CBC INCLUDES DIFFERENTIAL AND PLATELET COUNT (11/25/2014 2:52 PM EDT) WBC 8.8 3.8 - 10.8 Thousand/u L [facility] Comment:{WHITE BLOOD CELL CO UNT {[id number]) RBC 4.68 3.80 - 5.10 Million/uL [facility] Comment:{RED BLOOD CELL COUN T {[id number]) HEMOGLOBIN 14.5 11.7 - 15.5 g/dL [facility] Comment:{HEMOGLOBIN {[id number]) HCT (Hematocrit) 42.2 35.0 - 45.0 % [facility] Comment:{HEMATOCRIT {[id number]) MCV 90.1 80.0 - 100.0 fL [facility] Comment:{MCV {[id number]) MCH 30.9 27.0 - 33.0 pg [facility] Comment:{MCH {[id number]) MCHC 34.3 32.0 - 36.0 g/dL [facility] Comment:{MCHC {[id number]) RDW 12.4 11.0 - 15.0 % [facility] Comment:{RDW {[id number]) PLATELETS 292 140 - 400 Thousand/u L [facility] Comment:{PLATELET COUNT {[id number]) MPV 8.7 7.5 - 11.5 fL [facility] Comment:{MPV {[id number]) Absolute Neutrophils 6662 1500 - 7800 cells/uL [facility] Comment:{ABSOLUTE NEUTROPHIL S {[id number]) Absolute Lymphocytes 1302 850 - 3900 cells/uL [facility] Comment:{ABSOLUTE LYMPHOCYTE S {[id number]) Absolute Moncytes 730 200 - 950 cells/uL [facility] Comment:{ABSOLUTE MONOCYTES {[id number]) Absolute Eosinophils 44 15 - 500 cells/uL [facility] Comment:{ABSOLUTE EOSINOPHIL S {[id number]) Absolute Basophils 62 0 - 200 cells/uL [facility] Comment:{ABSOLUTE BASOPHILS {[id number]) NEUTROPHILS 75.7 % [facility] Comment:{NEUTROPHILS {[id number]) LYMPHOCYTES 14.8 % [facility] Comment:{LYMPHOCYTES {[id number]) Monocytes 8.3 % [facility] Comment:{MONOCYTES {[id number]) EOSINOPHILS 0.5 % [facility] Comment:{EOSINOPHILS {[id number]) BASOPHILS 0.7 % [facility] Comment:{BASOPHILS {[id number]) 11/25/2014 2:52 PM EDT 11/25/2014 10:19 PM EDT Narrative Resulting Agency Comment [id number] us Virgil Arellano MD LAB SAME DAY RESULT Final Res ult [facility] [address] [place] [address] documented in this encounter Visit Diagnoses Diagnosis Vomiting Vomiting alone Diarrhea documented in this encounter Care Teams Edge Finisher Relationship Specialty Start Date End Date Virgil Arellano MD [address] [place] [address] PCP - General 11/11/05 08/19/16 Shanice Deloen MD [address] [place] [address] PCP - General Family Medicine 08/20/16 10/25/16 Virgil Arellano MD [address] [place] [address] PCP - General Family Medicine 10/26/16 07/04/17 documented as of this encounter
--- OUTSIDE RECORDS SUMMARY | 2024-10-10 00:34 | XMS_ITS | Encounter Summary ---
Author Organization [facility] Address [address] [place] [address] Care Team Providers Care Geological Aide Name Role Phone Virgil Arellano MD Primary Care Provider [phone] Shanice Deleon MD Primary Care Provider [phone] Virgil Arellano MD Primary Care Provider [phone] Encounter Details Date Type Department Care Team (Late st Contact Info) Description 11/25/2014 Orders Only [facility] [address] [place] [address] Hakan Fagan MD [address] [place] [address] Social History Tobacco Use Types Packs/Day Years [...] of this encounter Procedures * Due to [place] [employer] law, this organization might not be sharing negative HIV tests. Procedure Name Priority Date/Time Associated Diagnosis Comments HCG, (HUMAN CHORIONIC GONADOTROPIN), URINE, QUALITATIVE (SITE - STAT ONLY) Routine 11/25/2014 3:45 PM EDT Nausea vomiting and diarrhea Dehydration documented in this encounter Results * Due to [place] [employer] law, this organization might not be sharing negative HIV tests. * HCG, (HUMAN CHORIONIC GONADOTROPIN), URINE, QUALITATIVE (SITE - STAT ONLY) (11/25/2014 3:45 PM EDT) HCG, Qualitative, Urine negative Neg [facility] (CLIA# [id number]) Urine specimen (specimen) 11/25/2014 3:45 PM EDT us Hakan Fagan MD LAB SAME DAY RESULT Final Result [facility] (CLIA# [id number]) [address] [place] [address] documented in this encounter Visit Diagnoses Diagnosis Nausea vomiting and diarrhea Diarrhea Dehydration documented in this encounter Care Teams Geological Aide Relationship Specialty Start Date End Date Virgil Arellano MD [address] [place] [address] PCP - General 11/11/05 08/19/16 Shanice Deleon MD [address] [place] [address] PCP - General Family Medicine 08/20/16 10/25/16 Virgil Arellano MD [address] [place] [address] PCP - General Family Medicine 10/26/16 07/04/17 documented as of this encounter
--- OUTSIDE RECORDS SUMMARY | 2024-10-10 00:34 | XMS_ITS | Encounter Summary ---
Author Organization [facility] Address [address] [place] [address] Care Team Providers Care Field Service Representative Name Role Phone Virgil Arellano MD Primary Care Provider [phone] Shanice Deleon MD Primary Care Provider [phone] Virgil Arellano MD Primary Care Provider [phone] Encounter Details Date Type Department Care Team (Late st Contact Info) Description 04/03/2011 Orders Only [address] [phone] Virgil Arellano MD [address] [place], [place] [phone] Social History Tobacco Use Types Packs/Day Years [...] Progress Notes * Virgil Arellano MD - 04/04/2011 7:56 AM EDTQuick Note: Discuss at ov. documented in this encounter Plan of Treatment Not on file documented as of this encounter Procedures * Due to [place] [employer] law, this organization might not be sharing negative HIV tests. Procedure Name Priority Date/Time Associated Diagnosis Comments HEMOGLOBIN A1C Routine 04/03/2011 10:13 AM EDT Nonspecific abnormal finding LIPID PANEL + CARDIAC RISK WITH REFLEX TO LDL DIRECT Routine 04/03/2011 10:13 AM EDT Nonspecific abnormal finding TSH, THYROTROPIN Routine 04/03/2011 10:1 3 AM EDT Hypothyroidism documented in this encounter Results * Due to [place] state law, this organization might not be sharing negative HIV tests. * HEMOGLOBIN A1C (04/03/2011 10:13 AM EDT) Hemoglobin A1C 5.3 <5.7 % of total Hgb [facility] Comment: {HEMOGLOBIN A1c {[id number]) ?Decreased risk of diabetes ? <5.7 ? Decreased risk of diabetes ? 5.7-6.0 ?Increased risk of diabetes ? 6.1-6.4 ?Higher risk of diabetes ? > or = 6.5 Consistent with diabetes ?Standards of Medical Care in Diabetes-2010. ?Diabetes Care, 33(Supp 1): S1-S61,2010. Estimated Average Glucose 111 mg/dL (calc) [facility] Comment:{MEAN PLASMA GLUCOSE {[id number]) 04/03/2011 10:1 3 AM EDT 04/03/2011 8:45 PM EDT Narrative Resulting Agency Comment [id number] Virgil Arellano MD LABORATORY Final Result Performing Organization Address [facility]/ZIP Co de Phone Number [facility] [address] [place] [address] * (ABNORMAL) LIPID PANEL + CARDIAC RISK WITH REFLEX TO LDL DIRECT (04/03/2011 10:13 AM EDT) Cholesterol 203(H) 125 - 170 mg/dL [facility] Comment:{CHOLESTEROL, TOTAL {[id number]) HDL Cholesterol 30(L) 36 - 76 mg/dL [facility] Comment:{HDL CHOLESTEROL {[id number]) Triglyceride 153(H) 40 - 136 mg/dL [facility] Comment:{TRIGLYCERIDES {[id number]) LDL Cholesterol 142(H) <110 mg/dL (calc) [facility] Comment: {LDL-CHOLESTEROL {[id number]) Desirable range <100 mg/dL for patients with CHD or diabetes and <70 mg/dL for diabetic patients with known heart disease. CHOL/HDL Ratio 6.8(H) < OR = 5.0 (calc) [facility] Comment:{CHOL/HDLC RATIO {[id number]) 04/03/2011 10:1 3 AM EDT 04/03/2011 8:45 PM EDT Narrative Resulting Agency Comment [id number] Virgil Arellano MD LABORATORY Final Result Performing Organization Address [facility] Co de Phone Number [facility] [address] [place] [address] * TSH (THYROTROPIN) (04/03/2011 10:13 AM EDT) TSH 1.82 mIU/L [facility] Comment: {TSH, 3RD GENERATION {[id number]) Reference Range 1-19 Years ??0.50-4.30 ? Ranges First trimester ?? 0.20-4.70 Second trimester ??0.30-4.10 Third trimester ?? 0.40-2.70 04/03/2011 10:1 3 AM EDT 04/03/2011 8:45 PM EDT Narrative Resulting Agency Comment [id number] us Virgil Arellano MD LABORATORY Final Result [facility] [address] [place] [address] documented in this encounter Visit Diagnoses Diagnosis Hypothyroidism Unspecified hypothyroidism Nonspecific abnormal finding Other nonspecific abnormal finding documented in this encounter Care Teams Field Service Representative Relationship Specialty Start Date End Date Virgil Arellano MD [address] [place] [address] PCP - General 11/11/05 08/19/16 Shanice Deleon MD [address] [place] [address] PCP - General Family Medicine 08/20/16 10/25/16 Virgil Arellano MD [address] [place] [address] PCP - General Family Medicine 10/26/16 07/04/17 documented as of this encounter
--- OUTSIDE RECORDS SUMMARY | 2024-10-10 00:34 | XMS_ITS | Encounter Summary ---
Author Organization [facility] Address [address] [place] [address] Care Team Providers Care Litigation Legal Assistant Name Role Phone Virgil Arellano MD Primary Care Provider [phone] Shanice Deleon MD Primary Care Provider [phone] Virgil Arellano MD Primary Care Provider [phone] Reason for Visit * Reason Onset Date Comments No Show 05/28/2014 Encounter Details Date Type Department Care Team (Late st Contact Info) Description 05/28/[address] [facility] [address] [place] [phone] Mercedes Best PA No Show Social History Tobacco Use Types Packs/Day Years [...] on file documented as of this encounter Miscellaneous Notes * Telephone Encounter - Shanice Lozano - 05/28/2014 1:33 PM EDT Patient no showed their appointment for mood and bp check last week. There was no error made in scheduling. Have sent patient the standard No Show letter. documented in this encounter Plan of Treatment Not on file documented as of this encounter Visit Diagnoses Not on filedocumented in this encounter Care Teams Litigation Legal Assistant Relationship Specialty Start Date End Date Virgil Arellano MD [address] [place] [address] PCP - General 11/11/05 08/19/16 Shanice Deleon MD [address] [place] [address] PCP - General Family Medicine 08/20/16 10/25/16 Virgil Arellano MD [address] [place] [address] PCP - General Family Medicine 10/26/16 07/04/17 documented as of this encounter
--- OUTSIDE RECORDS SUMMARY | 2024-10-10 00:34 | XMS_ITS | Encounter Summary ---
Author Organization [facility] Address [address] [place] [address] Care Team Providers Care Meter Technician Name Role Phone Virgil Arellano MD Primary Care Provider [phone] Shanice Deleon MD Primary Care Provider [phone] Virgil Arellano MD Primary Care Provider [phone] Encounter Details Date Type Department Care Team (Late st Contact Info) Description 07/20/[address] [facility] [address] [place] [phone] Ely Arevalo PA [address] [address] Social History Tobacco Use Types Packs/Day Years [...] encounter Progress Notes * Ceci Cabrera - 07/21/2014 8:59 AM ESTQuick Note: See epic note * Ely Stanton PA - 07/21/2014 7:30 AM ESTQuick Note: Cholesterol panel normal with the exception of a low HDL or good cholesterol. Regular exercise willhelp increase this. Electrolytes normal. CBC reveals slightly elevated WBC but patient did note sherecently got over a stomach bug . Please recheck CBC in two weeks. documented in this encounter Plan of Treatment Not on file documented as of this encounter Goals Goal Patient Goal Type Associated Problems Recent Progress Patient-Stated? Author Blood Pressure < 140/90 Blood Pressure 126/80(2015 9:25 AM EDT) No Rica Early Quit smoking / using tobacco Lifestyle No Rica Early documented as of this encounter Procedures * Due to [place] [employer] law, this organization might not be sharing negative HIV tests. Procedure Name Priority Date/Time Associated Diagnosis Comments CBC INCLUDES DIFFERENTIAL AND PLATELET COUNT Routine 07/20/2014 11:00 AM EST Hypertension Obesity LIPID PANEL WITH REFLEX TO DIRECT LDL Routine 07/20/2014 11:00 AM EST Obesity BASIC METABOLIC PANEL WITH (GFR) Routine 07/20/2014 11:00 AM EST Hypertension documented in this encounter Results * Due to [place] [employer] law, this organization might not be sharing negative HIV tests. * (ABNORMAL) CBC INCLUDES DIFFERENTIAL AND PLATELET COUNT (07/20/2014 11:00 AM EST) WBC 12.6(H) 3.8 - 10.8 Thousand/ uL [facility] Comment:{WHITE BLOOD CELL CO UNT {[id number]) RBC 4.62 3.80 - 5.10 Million/u L [facility] Comment:{RED BLOOD CELL COUN T {[id number]) HEMOGLOBIN 14.2 11.7 - 15.5 g/dL [facility] Comment:{HEMOGLOBIN {[id number]) HCT (Hematocrit) 41.2 35.0 - 45.0 % [facility] Comment:{HEMATOCRIT {[id number]) MCV 89.1 80.0 - 100.0 fL [facility] Comment:{MCV {[id number]) MCH 30.7 27.0 - 33.0 pg [facility] Comment:{MCH {[id number]) MCHC 34.5 32.0 - 36.0 g/dL [facility] Comment:{MCHC {[id number]) RDW 12.6 11.0 - 15.0 % [facility] Comment:{RDW {[id number]) PLATELETS 366 140 - 400 Thousand/ uL [facility] Comment:{PLATELET COUNT {[id number]) MPV 7.9 7.5 - 11.5 fL [facility] Comment:{MPV {[id number]) Absolute Neutrophils 9236(H) 1500 - 7800 cells/uL [facility] Comment:{ABSOLUTE NEUTROPHIL S {[id number]) Absolute Lymphocytes 2381 850 - 3900 cells/uL [facility] Comment:{ABSOLUTE LYMPHOCYTE S {[id number]) Absolute Moncytes 554 200 - 950 cells/uL [facility] Comment:{ABSOLUTE MONOCYTES {[id number]) Absolute Eosinophils 302 15 - 500 cells/uL [facility] Comment:{ABSOLUTE EOSINOPHIL S {[id number]) Absolute Basophils 126 0 - 200 cells/uL [facility] Comment:{ABSOLUTE BASOPHILS {[id number]) NEUTROPHILS 73.3 % [facility] Comment:{NEUTROPHILS {[id number]) LYMPHOCYTES 18.9 % [facility] Comment:{LYMPHOCYTES {[id number]) Monocytes 4.4 % [facility] Comment:{MONOCYTES {[id number]) EOSINOPHILS 2.4 % [facility] Comment:{EOSINOPHILS {[id number]) BASOPHILS 1.0 % [facility] Comment:{BASOPHILS {[id number]) 07/20/2014 11:0 0 AM EST 07/20/2014 4:15 PM EST Narrative Resulting Agency Comment [id number] Virgil Arellano MD LAB SAME DAY RESULT Final Res ult [facility] [address] [place] [address] * BASIC METABOLIC PANEL WITH (GFR) (07/20/2014 11:00 AM EST) GLUCOSE 88 65 - 99 mg/dL [facility] Comment: {GLUCOSE {[id number]) ? Fasting reference interval UREA NITROGEN (BUN) 16 7 - 25 mg/dL [facility] Comment:{UREA NITROGEN (BUN) {[id number]) CREATININE 0.77 0.50 - 1.10 mg/dL [facility] Comment:{CREATININE {[id number]) EGFR NON-AFR. GRENADIAN 110 > OR = 60 mL/min/1. 73m2 [facility] Comment:{eGFR NON-AFR. AMERI CAN {[id number]) EGFR 128 > OR = 60 mL/min/1. 73m2 [facility] Comment:{eGFR AMERIC AN {[id number]) BUN/CREATININE RATIO NOT APPLICABLE 6 - 22 (calc) [facility] Comment:{BUN/CREATININE RATI O {[id number]) SODIUM 137 135 - 146 mmol/L [facility] Comment:{SODIUM {[id number]) POTASSIUM 5.3 3.5 - 5.3 mmol/L [facility] Comment:{POTASSIUM {[id number]) CHLORIDE 101 98 - 110 mmol/L [facility] Comment:{CHLORIDE {[id number]) CARBON DIOXIDE 27 19 - 30 mmol/L [facility] Comment:{CARBON DIOXIDE {[id number]) CALCIUM 9.7 8.6 - 10.2 mg/dL [facility] Comment:{CALCIUM {[id number]) 07/20/2014 11:0 0 AM EST 07/20/2014 4:15 PM EST Narrative [facility] - 07/20/2014 7:59 PM EST Please note that this estimated GFR does [...] needs for GFR calculation. Resulting Agency Comment [id number] Virgil Arellano MD LABORATORY Final Result Performing Organization Address [facility] Co de Phone Number [facility] [address] [place] [address] * (ABNORMAL) LIPID PANEL WITH REFLEX TO DIRECT LDL (07/20/2014 11:00 AM EST) Cholesterol, Total 192 125 - 200 mg/dL [facility] Comment:{CHOLESTEROL, TOTAL {[id number]) HDL CHOLESTEROL 41(L) > OR = 46 mg/dL [facility] Comment:{HDL CHOLESTEROL {[id number]) TRIGLYCERIDES 147 <150 mg/dL [facility] Comment:{TRIGLYCERIDES {[id number]) LDL-CHOLESTEROL 122 <130 mg/dL (calc) [facility] Comment: {LDL-CHOLESTEROL {[id number]) Desirable range <100 mg/dL for patients with CHD or diabetes and <70 mg/dL for diabetic patients with known heart disease. CHOL/HDLC RATIO 4.7 < OR = 5.0 (calc) [facility] Comment:{CHOL/HDLC RATIO {[id number]) Cholesterol Non-HDL 151 mg/dL (calc) [facility] Comment: {NON HDL CHOLESTEROL {[id number]) Target for non-HDL cholesterol is 30 mg/dL higher than LDL cholesterol target. 07/20/2014 11:0 0 AM EST 07/20/2014 4:15 PM EST Narrative Resulting Agency Comment [id number] Virgil Arellano MD LABORATORY Final Result Performing Organization Address City/[facility] Co de Phone Number [facility] [address] [place] [address] documented in this encounter Visit Diagnoses Diagnosis Obesity Obesity, unspecified Hypertension Unspecified essential hypertension documented in this encounter Care Teams Meter Technician Relationship Specialty Start Date End Date Virgil Arellano MD [address] [place] [address] PCP - General 11/11/05 08/19/16 Shanice Deleon MD [address] [place] [address] PCP - General Family Medicine 08/20/16 10/25/16 Virgil Arellano MD [address] [place] [address] PCP - General Family Medicine 10/26/16 07/04/17 documented as of this encounter
--- OUTSIDE RECORDS SUMMARY | 2024-10-10 00:34 | XMS_ITS | Encounter Summary ---
Author Organization [facility] Address [address] [place] [address] Care Team Providers Care Bath Attendant Name Role Phone Virgil Arellano MD Primary Care Provider [phone] Shanice Deleon MD Primary Care Provider [phone] Virgil Arellano MD Primary Care Provider [phone] Encounter Details Date Type Department Care Team (Late st Contact Info) Description 02/03/2010 Orders Only [address] [phone] Virgil Arellano MD [address] [place], [place] [phone] Social History Tobacco Use Types Packs/Day Years Used Date Smoking Tobacco: Never Alcohol Use Standard Drinks/Week Comments No 0 (1 standard drink = 0.6 oz pur e alcohol) Comments No Sex and Gender Information Value Date Recorded Sex Assigned at Not on file Legal Sex Female 10:18 PM EDT Gender Identity Not on file Sexual Orientation Not on file documented as of this encounter Progress Notes * Virgil Arellano MD - 02/14/2010 6:20 PM EDTQuick Note: Reviewed at ov. * Ceci Cabrera - 02/09/2010 9:21 AM EDTQuick Note: See epic note * Jl Odonnell MD - 02/08/2010 5:01 PM EDTQuick Note: Plz ask if pt is having any urinary sx. Ok to send bactrim if she is symptomatic documented in this encounter Plan of Treatment Not on file documented as of this encounter Procedures * Due to [place] [employer] law, this organization might not be sharing negative HIV tests. Procedure Name Priority Date/Time Associated Diagnosis Comments METANEPHRINE UR RAND Routine 02/03/2010 Hypertension CBC 5 PART DIFF Routine 02/03/2010 Hypertension URINALYSIS, COMPLETE (DIP & MICRO) Routine 02/03/2010 Hypertension documented in this encounter Results * Due to [place] [employer] law, this organization might not be sharing negative HIV tests. * (ABNORMAL) URINALYSIS, COMPLETE (DIP & MICRO) (02/03/2010) COLOR (URINE) YELLOW YELLOW [facility] APPEARANCE (URINE) CLOUDY(A) CLEAR [facility] SPECIFIC GRAVITY 1.026 1.001 - 1.035 [facility] PH (URINE) 6.5 5.0 - 8.0 [facility] PROTEIN (URINE) 1+(A) NEG [facility] GLUCOSE (URINE) NEG NEG [facility] Ketones (Urine) NEG NEG [facility] BILIRUBIN (URINE) NEG NEG [facility] BLOOD (URINE) TRACE(A) NEG [facility] WBC (URINE) NEG NEG [facility] NITRITE (URINE) NEG NEG [facility] WBC (URINE) 6-10(A) 0-4/HPF [facility] RBC (Urine Sed) 0 0-3/HPF [facility] EPITHELIAL CELLS.SQUAMOUS (URINE SED) 10-20(A) 0-5/HPF [facility] EPITHELIAL CELLS.TRANSITI ONAL (URINE SED) 0 0-5/HPF [facility] EPITHELIAL CELLS.RENAL (URINE SED) 0 0-3/HPF [facility] BACTERIA (URINE) MANY(A) NONE SEEN [facility] 02/03/2010 02/04/2010 1:3 5 AM EDT Narrative [facility] - 02/08/2010 4:18 PM EDT Report Comments: METANEPHRINES, RANDOM URINE NOT PERFORMED,NO URINE RECEIVED. us Virgil Arellano MD LAB SAME DAY RESULT Final Res ult Performing Organization Address [facility] Co de Phone Number [facility] [address] [place] [phone] * METANEPHRINE UR RAND (02/03/2010) CREATININE (URINE) TNP MG/DL Q [facility] METANEPHRINE (URINE) TNP [facility] Comment:UNITS: UG/G CREATINI NE NORMETANEPHRINE (URINE) TNP [facility] Comment:UNITS: UG/G CREATINI NE TOTAL METANEPHRINES, RANDOM URINE TNP [facility] Comment:UNITS: UG/G CREATINI NE 02/03/2010 02/04/2010 1:3 5 AM EDT Narrative [facility] - 02/08/2010 4:18 PM EDT Report Comments: METANEPHRINES, RANDOM URINE NOT PERFORMED,NO URINE RECEIVED. us Virgil Arellano MD LABORATORY Final Result Performing Organization Address [facility] de Phone Number [facility] [address] [place] [address] * CBC 5 PART DIFF (02/03/2010) WHITE BLOOD COUNT 10.4 4.5 - 13.0 THOUS/UL [facility] RBC 4.63 3.80 - 5.10 MIL/UL [facility] Hemoglobin 14.8 11.5 - 15.3 G/DL [facility] HCT (HEMATOCRIT) 42.0 34.0 - 46.0 % [facility] MCV 90.9 78.0 - 98.0 FL [facility] MCH 32.0 25.0 - 35.0 PG [facility] MCHC 35.2 31.0 - 36.0 G/DL [facility] BAND % 0 0 - 5 % [facility] NEUTROPHIL % 63 48 - 75 % [facility] LYMPHOCYTE % 27 17 - 40 % [facility] MONOCYTE % 5 0 - 14 % [facility] EOSINOPHIL % 5 0 - 5 % [facility] BASOPHIL % 0 0 - 3 % [facility] ATYPICAL LYMPHOCYTE % 0 0 - 5 % [facility] PLATELETS 334 140 - 400 THOUS/UL [facility] BANDS # 0 0 - 750 CELLS/MCL [facility] NEUTROPHILS # 6552 1800 - 8000 CELLS/MCL [facility] LYMPHOCYTES # 2808 1200 - 5200 CELLS/MCL [facility] MONOCYTES # 520 200 - 900 CELLS/MCL [facility] EOSINOPHILS # 520 15 - 550 CELLS/MCL [facility] BASOPHILS # 0 0 - 200 CELLS/MCL [facility] ATYPICAL LYMPHOCYTES # 0 0 - 200 CELLS/MCL [facility] RDW 13.0 11.0 - 15.0 % [facility] MPV 8.2 7.5 - 11.5 FL [facility] 02/03/2010 02/04/2010 1:3 5 AM EDT Narrative [facility] - 02/08/2010 4:18 PM EDT Report Comments: METANEPHRINES, RANDOM URINE NOT PERFORMED,NO URINE RECEIVED. us Virgil Arellano MD LAB SAME DAY RESULT Final Res ult [facility] [address] [place] [address] documented in this encounter Visit Diagnoses Diagnosis Hypertension Unspecified essential hypertension documented in this encounter Care Teams Bath Attendant Relationship Specialty Start Date End Date Virgil Arellano MD [address] [place] [address] PCP - General 11/11/05 08/19/16 Shanice Deleon MD [address] [place] [address] PCP - General Family Medicine 08/20/16 10/25/16 Virgil Arellano MD [address] [place] [address] PCP - General Family Medicine 10/26/16 07/04/17 documented as of this encounter
[2024-10-10 00:35] LABS: Basophils Absolute Auto 0.1 X10*3/uL (0.0-0.2); Eosinophils Absolute Auto 0.4 X10*3/uL (0.0-0.4); Eosinophils Percent Auto 4.1 % (0-4); Hematocrit 40.5 % (37.0-47.0); Hemoglobin 13.3 g/dl (12.0-16.0); Imm Gran Abs Auto 0.02 X10*3/uL (0.00-0.03); Imm Gran Pct Auto 0.2 % (0.0-0.4); Lymphocytes Absolute Auto 4.6 X10*3/uL (1.2-4.9); Lymphocytes Percent Auto 52.8 % (20-40); Mean Corpuscular HGB Conc 32.8 g/dl (31.0-35.0); Mean Corpuscular Hemoglobin 27.7 pg (27.0-33.0); Mean Corpuscular Volume 84.2 fL (80.0-98.0); Mean Platelet Volume 9.3 fL (9.4-12.3); Monocytes Absolute Auto 0.7 X10*3/uL (0.1-1.2); Neutrophils Absolute Auto 2.9 x10*3/uL (2.0-8.3); Neutrophils Percent Auto 33.9 % (45-73); Platelet Count 281 X10*3/uL (160-400); Red Blood Count 4.81 X10*6/uL (4.20-5.50); Red Cell Distribution Width 13.7 % (11.0-16.0); White Blood Count 8.6 X10*3/uL (4.8-10.8)
--- OUTSIDE RECORDS SUMMARY | 2024-10-10 00:35 | XMS_ITS | Encounter Summary ---
Author Organization [facility] Address [address] [place] [address] Care Team Providers Care Rn Cvor Name Role Phone Virgil Arellano MD Primary Care Provider [phone] Shanice Deleon MD Primary Care Provider [phone] Virgil Arellano MD Primary Care Provider [phone] Encounter Details Date Type Department Care Team (Late st Contact Info) Description 11/30/[address] [facility] [address] [place] [address] Virgil Arellano MD [address] [place], [place] [phone] Social History Tobacco Use Types Packs/Day Years [...] encounter Progress Notes * Rica Early - 12/01/2014 8:30 AM EDTQuick Note: SEE TM * Ely Arevalo PA - 12/01/2014 7:34 AM EDTAissatou Note: Please let patient know that her electrolyte panel has normalized and no longer indicates dehydration. I'm glad she is feeling better! documented in this encounter Plan of Treatment Not on file documented as of this encounter Goals Goal Patient Goal Type Associated Problems Recent Progress Patient-Stated? Author Blood Pressure < 140/90 Blood Pressure 126/80(2015 9:25 AM EDT) No Rica Early Quit smoking / using tobacco Lifestyle No Rica Early documented as of this encounter Procedures * Due to [place] [employer] law, this organization might not be sharing negative HIV tests. Procedure Name Priority Date/Time Associated Diagnosis Comments BASIC METABOLIC PANEL WITH (GFR) Routine 11/30/2014 12:38 PM EDT Dehydration documented in this encounter Results * Due to [place] [employer] law, this organization might not be sharing negative HIV tests. * BASIC METABOLIC PANEL WITH (GFR) (11/30/2014 12:38 PM EDT) Glucose 92 65 - 99 mg/dL [facility] Comment: {GLUCOSE {[id number]) ? Fasting reference interval Urea Nitrogen Blood (BUN) 19 7 - 25 mg/dL [facility] Comment:{UREA NITROGEN (BUN) {[id number]) Creatinine 0.83 0.50 - 1.10 mg/dL [facility] Comment:{CREATININE {[id number]) GFR 100 > OR = 60 mL/min/1. 73m2 [facility] Comment:{eGFR NON-AFR. AMERI CAN {[id number]) GFR () 116 > OR = 60 mL/min/1. 73m2 [facility] Comment:{eGFR AMERIC AN {[id number]) BUN/Creatinine Ratio NOT APPLICABLE (calc) [facility] Comment:{BUN/CREATININE RATI O {[id number]) Sodium 141 135 - 146 mmol/L [facility] Comment:{SODIUM {[id number]) Potassium 4.3 3.5 - 5.3 mmol/L [facility] Comment:{POTASSIUM {[id number]) Chloride 104 98 - 110 mmol/L [facility] Comment:{CHLORIDE {[id number]) Carbon dioxide 25 19 - 30 mmol/L [facility] Comment:{CARBON DIOXIDE {[id number]) Calcium 9.6 8.6 - 10.2 mg/dL [facility] Comment:{CALCIUM {[id number]) 11/30/2014 12:3 8 PM EDT 11/30/2014 6:18 PM EDT Narrative [facility] - 11/30/2014 11:47 PM EDT Please note that this estimated GFR [...] needs for GFR calculation. Resulting Agency Comment [id number] us Virgil Arellano MD LABORATORY Final Result Performing Organization Address City/State/[facility] Co de Phone Number [facility] [address] [place] [address] documented in this encounter Visit Diagnoses Diagnosis Dehydration documented in this encounter Care Teams Rn Cvor Relationship Specialty Start Date End Date Virgil Arellano MD [address] [place] [address] PCP - General 11/11/05 08/19/16 Shanice Deleon MD [address] [place] [address] PCP - General Family Medicine 08/20/16 10/25/16 Virgil Arellano MD [address] [place] [address] PCP - General Family Medicine 10/26/16 07/04/17 documented as of this encounter
--- OUTSIDE RECORDS SUMMARY | 2024-10-10 00:35 | XMS_ITS | Encounter Summary ---
Author Organization [facility] Address [address] [place] [address] Care Team Providers Care Hall Porter Name Role Phone Virgil Arellano MD Primary Care Provider [phone] Shanice Deleon MD Primary Care Provider [phone] Virgil Arellano MD Primary Care Provider [phone] Reason for Visit * Reason Onset Date Comments Refill Request 09/28/2015 Encounter Details Date Type Department Care Team (Late st Contact Info) Description 09/28/[address] [facility] [address] [place] [address] Virgil Arellano MD [address] [place], [place] [id number] Refill Request Social History Tobacco Use Types Packs/Day Years [...] encounter Miscellaneous Notes * Telephone Encounter - Anya Darling MA - 09/29/2015 2:56 PM EST Last filled 07/14/15 with 2 refills * Telephone Encounter - Shanice Carlos - 09/29/2015 10:23 AM EST Patient calling back. She says she last filled this on 08/30/15. ? Says it is not too early. Please advise. * Telephone Encounter - Jeni Polk - 09/28/2015 2:20 PM EST Any special requests or concerns? none Faxed/E-prescribed medication renewal request(s) for Franck Rome 24 y.o. female received from pharmacy. Verified and Confirmed pharmacy for patient. Last CPE with this specialty: 04/15/2015 Last OV with this specialty: 09/17/2015 Next OV: Future Appointments Date Time Provider Department Center 10/15/2015 10:30 AM LONDON Sheehan [facility] 10/25/2015 2:15 PM Vida Howard CNM [facility] Pertinent lab results: No labs suggested for any medication orders signed or pended in this encounter. Refresh if any orders changed. Allergies: Fluoxetine BP Readings from Last 1 Encounters: 09/17/15 138/84 Patient Active Problem List Diagnosis Date Noted ??? Tobacco use 04/15/2015 Smokes 1/2 ppd x 7 years. Counseled on smoking cessation. ??? Morbid obesity (HCC) 04/15/2015 Encouraged weight loss, exercise, dietary changes. ??? LSIL (low grade squamous intraepithelial lesion) on Pap smear 06/29/201406/2014 LSIL Plan:f/u in 1 year ??? GERD (gastroesophageal reflux disease) 06/20/2011 ??? Generalized anxiety disorder 09/28/2010 ??? Obesity 05/19/2010 ??? Hypertension 04/13/2010 ??? Dysmenorrhea 08/26/2009 ??? Hypothyroidism 08/03/2009 ??? OTHER AND UNSPECIFIED HYPERLIPIDEMIA 12/24/2007 Current Outpatient Prescriptions on File Prior to Visit Medication Sig Dispense Refill ??? TraZODone HCl 50 MG Tab 1 at bedtime as needed for sleep 30 Tab 1 ??? Ibuprofen 800 MG Tab TAKE ONE TABLET BY MOUTH THREE TIMES DAILY NEEDED FOR PAIN 90 Tab 0 ??? Levothyroxine Sodium 75 MCG Tab TAKE ONE TABLET BY MOUTH ONCE DAILY 30 Tab 8 ??? AmLODIPine Besylate 10 MG Tab TAKE ONE TABLET BY MOUTH ONCE DAILY 30 Tab 11 ??? LORazepam 1 MG Tab TAKE 1 TABLET BY MOUTH IN THE MORNING AND TWO TABLETS BY MOUTH AT NIGHT NEEDED FOR ANXIETY 90 Tab 2 ??? Lisinopril 10 MG Tab Take 1 by mouth daily 30 Tab 11 ??? Escitalopram Oxalate 20 MG Tab 1 by mouth daily 90 Tab 3 documented in this encounter Plan of Treatment Not on file documented as of this encounter Goals Goal Patient Goal Type Associated Problems Recent Progress Patient-Stated? Author Blood Pressure < 140/90 Blood Pressure 126/80(2015 9:25 AM EDT) No Rica Early Quit smoking / using tobacco Lifestyle No Rica Early documented as of this encounter Visit Diagnoses Diagnosis Generalized anxiety disorder- Primary documented in this encounter Care Teams Hall Porter Relationship Specialty Start Date End Date Virgil Arellano MD [address] [place] [address] PCP - General 11/11/05 08/19/16 Shanice Deleon MD [address] [place] [address] PCP - General Family Medicine 08/20/16 10/25/16 Virgil Arellano MD [address] [place] [address] PCP - General Family Medicine 10/26/16 07/04/17 documented as of this encounter
--- OUTSIDE RECORDS SUMMARY | 2024-10-10 00:35 | XMS_ITS | Encounter Summary ---
Author Organization [facility] Address [address] [place] [address] Care Team Providers Care Framework Developer Name Role Phone Virgil Arellano MD Primary Care Provider [phone] Shanice Deleon MD Primary Care Provider [phone] Virgil Arellano MD Primary Care Provider [phone] Reason for Visit * Reason Comments Erroneous encounter-disregard Encounter Details Date Type Department Care Team (Late st Contact Info) Description 06/06/2016 Telephone [facility] [address] [facility] [place] [address] Virgil Arellano MD [address] [place], [place] [phone] Erroneous encounter-disregard Social History Tobacco Use Types Packs/Day Years [...] on filedocumented in this encounter Care Teams Framework Developer Relationship Specialty Start Date End Date Virgil Arellano MD [address] [place] [address] PCP - General 11/11/05 08/19/16 Shanice Deleon MD [address] [place] [address] PCP - General Family Medicine 08/20/16 10/25/16 Virgil Arellano MD [address] [place] [address] PCP - General Family Medicine 10/26/16 07/04/17 documented as of this encounter
--- OUTSIDE RECORDS SUMMARY | 2024-10-10 00:35 | XMS_ITS | Encounter Summary ---
Author Organization [facility] Address [address] [place] [address] Care Team Providers Care Nuclear Scientist Name Role Phone Virgil Arellano MD Primary Care Provider Shanice Deleon MD Primary Care Provider [phone] Virgil Arellano MD Primary Care Provider [phone] Encounter Details Date Type Department Care Team (Late st Contact Info) Description 03/06/2006 Orders Only [address] [id number] Virgil Arellano MD [address] [place] [address] Social History Tobacco Use Types Packs/Day Years Used Date Smoking Tobacco: Never Assessed Comments Unknown Sex and Gender Information Value Date Recorded Sex Assigned at Not on file Legal Sex Female 10:18 PM EDT Gender Identity Not on file Sexual Orientation Not on file documented as of this encounter Plan of Treatment Not on file documented as of this encounter Visit Diagnoses Diagnosis Obesity- Primary Obesity, unspecified documented in this encounter Care Teams Nuclear Scientist Relationship Specialty Start Date End Date Virgil Arellano MD [address] [place], [place] [phone] PCP - General 11/11/05 08/19/16 Shanice Deloen MD [address] [place] [address] PCP - General Family Medicine 08/20/16 10/25/16 iVrgil Arellano MD [address] [place] [address] PCP - General Family Medicine 10/26/16 07/04/17 documented as of this encounter
--- OUTSIDE RECORDS SUMMARY | 2024-10-10 00:35 | XMS_ITS | Encounter Summary ---
Author Organization [facility] Address [address] [place] [address] Care Team Providers Care Nailhead Puncher Name Role Phone Shanice Deleon MD Primary Care Provider [phone] Virgil Arellano MD Primary Care Provider [phone] Reason for Visit * Reason Comments Patient Questions Medication Problem Encounter Details Date Type Department Care Team (Late st Contact Info) Description 10/23/[address] [facility] [address] [place] [address] Virgil Arellano MD [address] [place] [address] Patient Questions ; Medication Problem Social History Tobacco Use Types Packs/Day Years [...] encounter Miscellaneous Notes * Telephone Encounter - Sharonda Cottrell RN - 10/26/2016 12:08 PM EST Pt states that she already is off lorazepam and clonazepam and does not want to be prescribed this in the future. States that she was just calling for FYI PCP. * Telephone Encounter - Darrell Beard RN - 10/26/2016 11:57 AM EST lmom to rtc * Telephone Encounter - Virgil Arellano MD - 10/24/2016 5:20 PM EST Would reduce the dose to 0.5 mg po bid for two weeks, then q d for two weeks. Can then stop. * Telephone Encounter - Danyelle Albert RN - 10/24/2016 5:02 PM EST pss- please change pcp * Telephone Encounter - Danyelle Albert RN - 10/24/2016 5:01 PM EST As stated below, 1 mg po BID. Clonazepam is listed in the chart however pt stated she has not taken this med in years. Pt is interested in weaning off lorazepam bc she is currently taking suboxone and feels med is no longer needed. * Telephone Encounter - Virgil Arellano MD - 10/24/2016 4:18 PM EST Confirm current dosing of lorazepam. Is she asking to change to Clonazepam? Need to change PCP in EPIC> * Telephone Encounter - Danyelle Albert RN - 10/24/2016 3:55 PM EST Pt stated she is Dr Arellano's pt? * Telephone Encounter - Virgil Arellano MD - 10/23/2016 3:35 PM EST Whose patient is she at this time? Should direct question to PCP * Telephone Encounter - Danyelle Albert RN - 10/23/2016 3:31 PM EST Pt stated she is rx lorazepam 1 mg po BID for anxiety. Pt stated she has been taking med x's 4 years. Pt stated she feels like she does not need this med at this time. Pt has weaned herself off in the past with good effect. Pt stated she is currently taking suboxone via suboxone clinic. Pt stated she has not taken clonazepam in years. ( in epic) Please advise * Telephone Encounter - Shanice Carlos - 10/23/2016 1:52 PM EST Patient calling back. Please call. * Telephone Encounter - Shanice Lozano - 10/23/2016 11:41 AM EST Patient wants to stop taking the lorazapam please call. documented in this encounter Plan of Treatment Not on file documented as of this encounter Goals Goal Patient Goal Type Associated Problems Recent Progress Patient-Stated? Author Blood Pressure < 140/90 Blood Pressure 126/80(2015 9:25 AM EDT) No Rica Early Quit smoking / using tobacco Lifestyle No Rica Early documented as of this encounter Visit Diagnoses Not on filedocumented in this encounter Care Teams Nailhead Puncher Relationship Specialty Start Date End Date Shanice Deleon MD [address] [place] [address] PCP - General Family Medicine 08/20/16 10/25/16 Virgil Arellano MD [address] [place] [address] PCP - General Family Medicine 10/26/16 07/04/17 documented as of this encounter
--- OUTSIDE RECORDS SUMMARY | 2024-10-10 00:35 | XMS_ITS | Encounter Summary ---
Author Organization [facility] Address [address] [place] [address] Care Team Providers Care Credit Risk Officer Name Role Phone Virgil Arellano MD Primary Care Provider [phone] Shanice Deleon MD Primary Care Provider [phone] Virgil Arellano MD Primary Care Provider [phone] Encounter Details Date Type Department Care Team (Late st Contact Info) Description 03/24/2014 Orders Only [address] [facility] [address] [place] [phone] Mercedes Best PA Social History Tobacco Use [...] Job Start Date Job End Date Melba sam Not on file Not on file Not on file documented as of this encounter Progress Notes * Rita Montero LPN - 03/26/2014 3:33 PM EDTQuick Note: See telephone note. * Mercedes Best PA - 03/26/2014 3:31 PM EDTQuick Note: Please advise patient positive hsv 1. documented in this encounter Plan of Treatment Not on file documented as of this encounter Procedures * Due to [place] [employer] law, this organization might not be sharing negative HIV tests. Procedure Name Priority Date/Time Associated Diagnosis Comments HEPATITIS B SURFACE ANTIGEN Routine 03/24/2014 11:54 AM EDT Possible exposure to STD HEPATITIS C AB WITH REFLEX TO RNA PCR, SERUM Routine 03/24/2014 11:54 AM EDT Possible exposure to STD HEPATITIS B CORE ANTIBODY, TOTAL, SERUM Routine 03/24/2014 11:54 AM EDT Possible exposure to STD HSV 1 AND 2 IGG HERPESELECT SPECIFIC ANTIBODY Routine 03/24/2014 11:54 AM EDT Possible exposure to STD RPR, (RAPID PLASMIN REAGIN) WITH REFLEX TO FTA, DIAGNOSTIC Routine 03/24/2014 11:54 AM EDT Possible exposure to STD THYROID STIMULATING HORMONE (TSH) WITH FREE T4 REFLEX, SERUM Routine 03/24/2014 11:54 AM EDT Hypothyroidism documented in this encounter Results * Due to [place] [employer] law, this organization might not be sharing negative HIV tests. * RPR, (RAPID PLASMIN REAGIN) WITH REFLEX TO FTA, DIAGNOSTIC (03/24/2014 11:54 AM EDT) Reagin Ab NON-REACT RASHUAN NON-REACT RASHAUN [facility] Comment:{RPR (DX) W/REFL TIT ER AND CONFIRMATORY TESTING {[id number]) 03/24/2014 11:5 4 AM EDT 03/24/2014 5:17 PM EDT Narrative Resulting Agency Comment [id number] us Virgil Arellano MD LABORATORY Final Result Performing Organization Address City/State/[place] Co de Phone Number [facility] [address] [place] [address] * (ABNORMAL) HSV 1 AND 2 IGG HERPESELECT SPECIFIC ANTIBODY (03/24/2014 11:54 AM EDT) Herpes Simplex Virus 1 IgG >5.00(H) [facility] Comment:{HSV 1 IGG TYPE SPEC IFIC AB {[id number]) Herpes simplex virus 2 Ab.IgG <0.90 [facility] Comment: {HSV 2 IGG TYPE SPECIFIC AB {[id number]) ?Value ?Interpretation ?----- ?<0.90 ?Negative ?0.90-1.10 ?Equivocal ?>1.10 ?Positive This assay utilizes recombinant type-specific antigens to differentiate HSV-1 from HSV-2 infections. A positive result cannot distinguish between recent and past infection. If recent HSV infection is suspected but the results are negative or equivocal, the assay should be repeated in 4-6 weeks. The performance characteristics of the assay have not been established for pediatric populations, immunocompromised patients, or screening. 03/24/2014 11:5 4 AM EDT 03/24/2014 5:17 PM EDT Narrative Resulting Agency Comment [id number] Virgil Arellano MD LABORATORY Final Result Performing Organization Address City/State/[place] Co de Phone Number [facility] [address] [place] [address] * HEPATITIS C ANTIBODY, SERUM (03/24/2014 11:54 AM EDT) Hepatitis C virus Ab NON-REACTI VE NON-REACT RASHAUN [facility] Comment:{HEPATITIS C ANTIBOD Y {[id number]) Hepatitis C virus Ab Signal/Cutoff 0.02 <1.00 [facility] Comment:{SIGNAL TO CUT-OFF { [id number]) 03/24/2014 11:5 4 AM EDT 03/24/2014 5:17 PM EDT Narrative Resulting Agency Comment [id number] us Virgil Arellano MD LABORATORY Final Result Performing Organization Address [facility] de Phone Number [facility] [address] [place] [address] * HEPATITIS B CORE ANTIBODY, TOTAL, SERUM (03/24/2014 11:54 AM EDT) Hepatitis B virus core Ab NON-REACTI VE NON-REACT RASHAUN [facility] Comment:{HEPATITIS B CORE AB TOTAL {[id number]) 03/24/2014 11:5 4 AM EDT 03/24/2014 5:17 PM EDT Narrative Resulting Agency Comment [id number] us Virgil Arellano MD LABORATORY Final Result Performing Organization Address [facility] de Phone Number [facility] [address] [place] [address] * HEPATITIS B SURFACE ANTIGEN (03/24/2014 11:54 AM EDT) Hepatitis B virus surface Ag NON-REACTI VE NON-REACT RASHAUN [facility] Comment:{HEPATITIS B SURFACE ANTIGEN {[id number]) 03/24/2014 11:5 4 AM EDT 03/24/2014 5:17 PM EDT Narrative Resulting Agency Comment [id number] us Virgil Arellano MD LABORATORY Final Result Performing Organization Address City/State/[place] Co de Phone Number [facility] [address] [place] [address] * THYROID STIMULATING HORMONE (TSH) WITH FREE T4 REFLEX, SERUM (03/24/2014 11:54 AM EDT) TSH 1.64 mIU/L [facility] Comment: {TSH W/REFLEX TO FT4 {[id number]) ?Reference Range ?> or = 20 Years ??0.40-4.50 ? Ranges ?First trimester ?0.26-2.66 ?Second trimester ?? 0.55-2.73 ?Third trimester ?0.43-2.91 03/24/2014 11:5 4 AM EDT 03/24/2014 5:17 PM EDT Narrative Resulting Agency Comment [id number] Virgil Arellano MD LABORATORY Final Result Performing Organization Address [facility]/[place] Co de Phone Number [facility] [address] [place] [address] documented in this encounter Visit Diagnoses Diagnosis Hypothyroidism- Primary Unspecified hypothyroidism Possible exposure to STD Other specified personal history presenting hazards to health documented in this encounter Care Teams Credit Risk Officer Relationship Specialty Start Date End Date Virgil Arellano MD [address] [place] [address] PCP - General 11/11/05 08/19/16 Shaince Deleon MD [address] [place] [address] PCP - General Family Medicine 08/20/16 10/25/16 Virgil Arellano MD [address] [place] [address] PCP - General Family Medicine 10/26/16 07/04/17 documented as of this encounter
--- OUTSIDE RECORDS SUMMARY | 2024-10-10 00:35 | XMS_ITS | Encounter Summary ---
Author Organization [facility] Address [address] [place] [address] Care Team Providers Care Forming Machine Operator Name Role Phone Virgil Arellano MD Primary Care Provider [phone] Shanice Deleon MD Primary Care Provider [phone] Virgil Arellano MD Primary Care Provider Encounter Details Date Type Department Care Team (Late st Contact Info) Description 06/23/2013 Orders Only [address] [phone] Virgil Arellano MD [address] [place], [place] [phone] Social History Tobacco Use Types Packs/Day Years [...] Progress Notes * Virgil Arellano MD - 06/24/2013 4:38 AM ESTQuick Note: Discuss at ov. documented in this encounter Plan of Treatment Not on file documented as of this encounter Procedures * Due to [place] state law, this organization might not be sharing negative HIV tests. Procedure Name Priority Date/Time Associated Diagnosis Comments ALANINE AMINOTRANSFERASE (ALT), SERUM Routine 06/23/2013 10:06 AM EST Hyperlipemia ASPARTATE AMINOTRANSFERASE (AST), SERUM Routine 06/23/2013 10:06 AM EST Hyperlipidemia LIPID PANEL WITH REFLEX TO DIRECT LDL Routine 06/23/2013 10:06 AM EST Diabetes mellitus (HCC) Hypertension BASIC METABOLIC PANEL WITH (GFR) Routine 06/23/2013 10:06 AM EST Hypertension documented in this encounter Results * Due to [place] state law, this organization might not be sharing negative HIV tests. * ASPARTATE AMINOTRANSFERASE (AST), SERUM (06/23/2013 10:06 AM EST) AST (SGOT) 19 10 - 30 U/L [facility] Comment:{AST {[id number]) 06/23/2013 10:0 6 AM EST 06/23/2013 3:52 PM EST Narrative Resulting Agency Comment [id number] us Virgil Arellano MD LAB SAME DAY RESULT Final Res ult Performing Organization Address City/State/[facility] Co de Phone Number [facility] [address] [place] [address] * ALANINE AMINOTRANSFERASE (ALT), SERUM (06/23/2013 10:06 AM EST) ALT (SGPT) 23 6 - 29 U/L [facility] Comment:{ALT {[id number]) 06/23/2013 10:0 6 AM EST 06/23/2013 3:52 PM EST Narrative Resulting Agency Comment [id number] us Virgil Arellano MD LAB SAME DAY RESULT Final Res ult Performing Organization Address [facility] Co de Phone Number [facility] [address] [place] [address] * (ABNORMAL) LIPID PANEL WITH REFLEX TO DIRECT LDL (06/23/2013 10:06 AM EST) Cholesterol 200 125 - 200 mg/dL [facility] Comment:{CHOLESTEROL, TOTAL {[id number]) HDL Cholesterol 29(L) > OR = 46 mg/dL [facility] Comment:{HDL CHOLESTEROL {[id number]) Triglyceride 334(H) <150 mg/dL [facility] Comment:{TRIGLYCERIDES {[id number]) LDL Cholesterol 104 <130 mg/dL (calc) [facility] Comment: {LDL-CHOLESTEROL {[id number]) Desirable range <100 mg/dL for patients with CHD or diabetes and <70 mg/dL for diabetic patients with known heart disease. CHOL/HDL Ratio 6.9(H) < OR = 5.0 (calc) [facility] Comment:{CHOL/HDLC RATIO {[id number]) Cholesterol Non-HDL 171(H) mg/dL (calc) [facility] Comment: {NON HDL CHOLESTEROL {[id number]) Target for non-HDL cholesterol is 30 mg/dL higher than LDL cholesterol target. 06/23/2013 10:0 6 AM EST 06/23/2013 3:52 PM EST Narrative Resulting Agency Comment [id number] us Virgil Arellano MD LABORATORY Final Result Performing Organization Address [facility]/ZIP Co de Phone Number [facility] [address] [place] [address] * BASIC METABOLIC PANEL WITH (GFR) (06/23/2013 10:06 AM EST) Glucose 83 65 - 99 mg/dL [facility] Comment: {GLUCOSE {[id number]) ? Fasting reference interval Urea Nitrogen Blood (BUN) 12 7 - 25 mg/dL [facility] Comment:{UREA NITROGEN (BUN) {[id number]) Creatinine 0.63 0.50 - 1.10 mg/dL [facility] Comment:{CREATININE {[id number]) GFR 129 > OR = 60 mL/min/1. 73m2 [facility] Comment:{eGFR NON-AFR. AMERI CAN {[id number]) GFR () 150 > OR = 60 mL/min/1. 73m2 [facility] Comment:{eGFR AMERIC AN {[id number]) BUN/Creatinine Ratio NOT APPLICABLE (calc) [facility] Comment:{BUN/CREATININE RATI O {[id number]) Sodium 139 135 - 146 mmol/L [facility] Comment:{SODIUM {[id number]) Potassium 3.7 3.5 - 5.3 mmol/L [facility] Comment:{POTASSIUM {[id number]) Chloride 104 98 - 110 mmol/L [facility] Comment:{CHLORIDE {[id number]) Carbon dioxide 28 19 - 30 mmol/L [facility] Comment:{CARBON DIOXIDE {[id number]) Calcium 9.7 8.6 - 10.2 mg/dL [facility] Comment:{CALCIUM {[id number]) 06/23/2013 10:0 6 AM EST 06/23/2013 3:52 PM EST Narrative [facility] - 06/23/2013 6:50 PM EST Please note that this estimated [...] needs for GFR calculation. Resulting Agency Comment [id number] us Virgil Arellano MD LABORATORY Final Result [facility] [address] [place] [address] documented in this encounter Visit Diagnoses Diagnosis Hypertension Unspecified essential hypertension Diabetes mellitus (HCC) Type II or unspecified type diabetes mellitus without mention of complication, not stated as uncontrolled Hyperlipemia Other and unspecified hyperlipidemia Hyperlipidemia Other and unspecified hyperlipidemia documented in this encounter Care Teams Forming Machine Operator Relationship Specialty Start Date End Date Virgil Arellano MD [address] [place] [address] PCP - General 11/11/05 08/19/16 Shanice Deleon MD [address] [place] [address] PCP - General Family Medicine 08/20/16 10/25/16 Virgil Arellano MD [address] [place] [address] PCP - General Family Medicine 10/26/16 07/04/17 documented as of this encounter
--- OUTSIDE RECORDS SUMMARY | 2024-10-10 00:35 | XMS_ITS | Encounter Summary ---
Author Organization [facility] Address [address] [place] [address] Care Team Providers Care Photovoltaic Subcontractor Name Role Phone Virgil Arellano MD Primary Care Provider [phone] Shanice Deleon MD Primary Care Provider [phone] Virgil Arellano MD Primary Care Provider [phone] Encounter Details Date Type Department Care Team (Late st Contact Info) Description 08/09/2015 Orders Only [facility] [address] [place] [address] Virgil Arellano MD [address] [place] [address] Social History Tobacco Use Types Packs/Day Years [...] as of this encounter Progress Notes * Sharonda Cottrell RN - 08/16/2015 11:24 AM ESTQuick Note: See TM 08/16/15 * Ely Arevalo PA - 08/16/2015 8:14 AM ESTQuick Note: Please inform patient of negative syphilis. * Sharonda Cottrell RN - 08/11/2015 12:37 PM ESTQuick Note: See TM 08/11/15 * Eliana De Jesus PA - 08/11/2015 11:05 AM ESTQuick Note: 1. HIV negative 2. Chlamydia and gonorrhea not detected 3. Hepatitis B and C non-reactive 4. 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 documented in this encounter Plan of Treatment Not on file documented as of this encounter Goals Goal Patient Goal Type Associated Problems Recent Progress Patient-Stated? Author Blood Pressure < 140/90 Blood Pressure 126/80(2015 9:25 AM EDT) No Rica Early Quit smoking / using tobacco Lifestyle No Rica Early documented as of this encounter Procedures * Due to [place] state law, this organization might not be sharing negative HIV tests. Procedure Name Priority Date/Time Associated Diagnosis Comments SYPHILIS (FTA) ANTIBODY CASCADING REFLEX TO RPR/TITER (*PREFERRED SCREEN*) Routine 08/09/2015 12:56 PM EST Screen for STD (sexually transmitted disease) CHLAMYDIA TRACHOMATIS/N. GONORRHOEAE (GC) RNA, TMA (URINE) Routine 08/09/2015 12:56 PM EST Screen for STD (sexually transmitted disease) HEPATITIS B SURFACE ANTIGEN Routine 08/09/2015 12:56 PM EST Screen for STD (sexually transmitted disease) HEPATITIS C AB WITH REFLEX TO RNA PCR, SERUM Routine 08/09/2015 12:56 PM EST Screen for STD (sexually transmitted disease) HSV 1 AND 2 IGG HERPESELECT SPECIFIC ANTIBODY Routine 08/09/2015 12:56 PM EST Screen for STD (sexually transmitted disease) documented in this encounter Results * Due to [place] state law, this organization might not be sharing negative HIV tests. * SYPHILIS (FTA) ANTIBODY CASCADING REFLEX TO RPR/TITER (*PREFERRED SCREEN*) (08/09/2015 12:56 PM EST) Treponema pallidum Ab Negative Negative [facility] Comment: {T. PALLIDUM AB, EIA {[id number]) No antibodies to T. pallidum (the agent causing syphilis) were detected in the specimen. This result, however, does not exclude very recent T. pallidum infection; testing of a second specimen, collected 2-4 weeks after this specimen, is recommended if the index of suspicion for recent infection is high. 08/09/2015 12:5 6 PM EST 08/09/2015 4:26 PM EST Narrative Resulting Agency Comment [id number] Eliana CALLAHAN [facility] Final Result [facility] [address] [place] [address] * (ABNORMAL) HSV 1 AND 2 IGG HERPESELECT SPECIFIC ANTIBODY (08/09/2015 12:56 PM EST) Herpes Simplex Virus 1 IgG >5.00(H) [facility] Comment:{HSV 1 IGG TYPE SPEC IFIC AB {[id number]) Herpes simplex virus 2 Ab.IgG <0.90 [facility] Comment: {HSV 2 IGG TYPE SPECIFIC AB {[id number]) ?Value ?Interpretation ?----- ?<0.90 ?Negative ?0.90-1.10 ?Equivocal [...] for pediatric populations, immunocompromised patients, or screening. 08/09/2015 12:5 6 PM EST 08/09/2015 4:26 PM EST Narrative Resulting Agency Comment [id number] Eliana CALLAHAN [facility] Final Result Performing Organization Address [facility] de Phone Number [employer] [address] [place] [address] * HEPATITIS C AB WITH REFLEX TO RNA PCR, SERUM (08/09/2015 12:56 PM EST) Hepatitis C virus Ab NON-REACTI VE NON-REACT RASHAUN [facility] Comment:{HEPATITIS C ANTIBOD Y {[id number]) Hepatitis C virus Ab Signal/Cutoff 0.03 <1.00 [facility] Comment:{SIGNAL TO CUT-OFF { [id number]) 08/09/2015 12:5 6 PM EST 08/09/2015 4:26 PM EST Narrative Resulting Agency Comment [id number] Eliana [facility]AH[facility] Final Result Performing Organization Address [facility]/ZIP Co de Phone Number [facility] [address] [place] [address] * HEPATITIS B SURFACE ANTIGEN (08/09/2015 12:56 PM EST) Hepatitis B virus surface Ag NON-REACTI VE NON-REACT RASHAUN [facility] Comment:{HEPATITIS B SURFACE ANTIGEN {[id number]) 08/09/2015 12:5 6 PM EST 08/09/2015 4:26 PM EST Narrative Resulting Agency Comment [id number] us Eliana CALLAHAN [facility] Final Result Performing Organization Address City/[facility]/ZIP Co de Phone Number [facility] [address] [place] [address] * CHLAMYDIA TRACHOMATIS/N. GONORRHOEAE (GC) RNA, TMA (URINE) (08/09/2015 12:56 PM EST) Chlamydia trachomatis rRNA NOT DETECTED NOT DETECTED [facility] Comment:{CHLAMYDIA TRACHOMAT IS RNA, TMA {[id number]) Neisseria Gonorrhoeae rRNA NOT DETECTED NOT DETECTED [facility] Comment:{NEISSERIA GONORRHOE AE RNA, TMA {[id number]) COMMENT SEE NOTE [facility] Comment: {COMMENT {[id number]) This test was performed using the APTIMA COMBO2 Assay ([employer] The analytical performance characteristics of this assay, when used to test SurePath specimens have been determined by [facility]. 08/09/2015 12:5 6 PM EST 08/09/2015 4:26 PM EST Narrative Resulting Agency Comment [id number] us Eliana CALLAH[facility] Final Result Performing Organization Address City/[facility]/ZIP Co de Phone Number [facility] [address] [place] [address] documented in this encounter Visit Diagnoses Diagnosis Screen for STD (sexually transmitted disease) Screening examination for venereal disease documented in this encounter Care Teams Photovoltaic Subcontractor Relationship Specialty Start Date End Date Virgil Arellano MD [address] [place] [address] PCP - General 11/11/05 08/19/16 Shanice Deleon MD [address] [place] [address] PCP - General Family Medicine 08/20/16 10/25/16 Virgil Arellano MD [address] [place] [address] PCP - General Family Medicine 10/26/16 07/04/17 documented as of this encounter
--- OUTSIDE RECORDS SUMMARY | 2024-10-10 00:35 | XMS_ITS | Encounter Summary ---
Author Organization [facility] Address [address] [place] [address] Care Team Providers Care Customer Engagement Representative Name Role Phone Virgil Arellano MD Primary Care Provider [phone] Shanice Deleon MD Primary Care Provider [phone] Virgil Arellano MD Primary Care Provider [phone] Encounter Details Date Type Department Care Team (Late st Contact Info) Description 03/15/[address] [facility] [address] [place] [phone] Ly Caballero MD [address] [place] [address] Social History Tobacco Use Types Packs/Day Years [...] as of this encounter Progress Notes * Dina Rhoades - 03/16/2015 3:02 PM EDTQuick Note: The patients lab results are at a normal/stable level by the protocol guidelines. The result letterwas completed and sent to patient. documented in this encounter Plan of Treatment Not on file documented as of this encounter Goals Goal Patient Goal Type Associated Problems Recent Progress Patient-Stated? Author Blood Pressure < 140/90 Blood Pressure 126/80(2015 9:25 AM EDT) No Rica Early Quit smoking / using tobacco Lifestyle No Rica Early documented as of this encounter Procedures * Due to [place] [employer] law, this organization might not be sharing negative HIV tests. Procedure Name Priority Date/Time Associated Diagnosis Comments RPR, (RAPID PLASMIN REAGIN) WITH REFLEX TO FTA, DIAGNOSTIC Routine 03/15/2015 11:16 AM EDT Routine screening for STI (sexually transmitted infection) documented in this encounter Results * Due to [place] [employer] law, this organization might not be sharing negative HIV tests. * CHLAMYDIA TRACHOMATIS/N. GONORRHOEAE (GC) RNA, TMA (URINE) (04/15/2015 11:49 AM EDT) Chlamydia trachomatis rRNA NOT DETECTED NOT DETECTED [facility] Comment:{CHLAMYDIA TRACHOMAT IS RNA, TMA {[id number]) Neisseria Gonorrhoeae rRNA NOT DETECTED NOT DETECTED [facility] Comment:{NEISSERIA GONORRHOE AE RNA, TMA {[id number]) COMMENT SEE NOTE [facility] Comment: {COMMENT {[id number]) This test was performed using the APTIMA COMBO2 Assay ([employer] The analytical performance characteristics of this assay, when used to test SurePath specimens have been determined by [employer] [facility]. 04/15/2015 11:4 9 AM EDT 04/15/2015 3:45 PM EDT Narrative Resulting Agency Comment [id number] us Ly Caballero MD LABORATORY Final Re sult [facility] [address] [place] [address] * RPR, (RAPID PLASMIN REAGIN) WITH REFLEX TO FTA, DIAGNOSTIC (03/15/2015 11:16 AM EDT) Reagin Ab NON-REACT RASHAUN NON-REACT RASHAUN [facility] Comment:{RPR (DX) W/REFL TIT ER AND CONFIRMATORY TESTING {[id number]) 03/15/2015 11:1 6 AM EDT 03/15/2015 7:41 PM EDT Narrative Resulting Agency Comment [id number] us Ly Caballero MD LABORATORY Final Re sult [facility] [address] [place] [address] documented in this encounter Visit Diagnoses Diagnosis Routine screening for STI (sexually transmitted infection)- Primary Screening examination for venereal disease documented in this encounter Care Teams Customer Engagement Representative Relationship Specialty Start Date End Date Virgil Arellano MD [address] [place] [address] PCP - General 11/11/05 08/19/16 Shanice Deleon MD [address] [place] [address] PCP - General Family Medicine 08/20/16 10/25/16 Virgil Arellano MD [address] [place] [address] PCP - General Family Medicine 10/26/16 07/04/17 documented as of this encounter
--- OUTSIDE RECORDS SUMMARY | 2024-10-10 00:35 | XMS_ITS | Encounter Summary ---
Author Organization [facility] Address [address] [place] [address] Care Team Providers Care Dermatology Technician Name Role Phone Virgil Arellano MD Primary Care Provider [phone] Shanice Deleon MD Primary Care Provider [phone] Virgil Arellano MD Primary Care Provider [phone] Encounter Details Date Type Department Care Team (Late st Contact Info) Description 12/24/[address] Orders [address] [facility] [address] [place] [address] Virgil Arellano MD [address] [place] [address] Social History Tobacco Use Types Packs/Day Years [...] encounter Progress Notes * Ceci Cabrera - 12/25/2013 11:08 AM EDTQuick Note: See epic note * Virgil Arellano MD - 12/25/2013 7:54 AM EDTQuick Note: Any sx of infection? documented in this encounter Plan of Treatment Not on file documented as of this encounter Procedures * Due to [place] [employer] law, this organization might not be sharing negative HIV tests. Procedure Name Priority Date/Time Associated Diagnosis Comments CBC (H/H, RBC, INDICES,WBC, PLT) Routine 12/24/2013 2:28 PM EDT Routine history and physical examination of adult ASPARTATE AMINOTRANSFERASE (AST), SERUM Routine 12/24/2013 2:28 PM EDT Hyperlipidemia TSH, 3RD GENERATION Routine 12/24/2013 2 :28 PM EDT Other and unspecified hyperlipidemia LIPID PANEL WITH REFLEX TO DIRECT LDL Routine 12/24/2013 2:28 PM EDT Hyperlipidemia BASIC METABOLIC PANEL WITH (GFR) Routine 12/24/2013 2:28 PM EDT Routine history and physical examination of adult documented in this encounter Results * Due to [place] [employer] law, this organization might not be sharing negative HIV tests. * TSH, 3RD GENERATION (12/24/2013 2:28 PM EDT) TSH 1.59 mIU/L [facility] Comment: {TSH {[id number]) ?Reference Range ?> or = 20 Years ??0.40-4.50 ? Ranges ?First trimester ?0.26-2.66 ?Second trimester ?? 0.55-2.73 ?Third trimester ?0.43-2.91 12/24/2013 2:28 PM EDT 12/24/2013 9:41 PM EDT Narrative Resulting Agency Comment [id number] Virgil Arellano MD LABORATORY Final Result Performing Organization Address [facility] Co de Phone Number [facility] [address] [place] [address] * ASPARTATE AMINOTRANSFERASE (AST), SERUM (12/24/2013 2:28 PM EDT) AST (SGOT) 18 10 - 30 U/L [facility] Comment:{AST {[id number]) 12/24/2013 2:28 PM EDT 12/24/2013 9:41 PM EDT Narrative Resulting Agency Comment [id number] Virgil Arellano MD LAB SAME DAY RESULT Final Res ult Performing Organization Address [facility] Co de Phone Number [facility] [address] [place] [address] * (ABNORMAL) LIPID PANEL WITH REFLEX TO DIRECT LDL (12/24/2013 2:28 PM EDT) Cholesterol 165 125 - 200 mg/dL [facility] Comment:{CHOLESTEROL, TOTAL {[id number]) HDL Cholesterol 35(L) > OR = 46 mg/dL [facility] Comment:{HDL CHOLESTEROL {[id number]) Triglyceride 170(H) <150 mg/dL [facility] Comment:{TRIGLYCERIDES {[id number]) LDL Cholesterol 96 <130 mg/dL (calc) [facility] Comment: {LDL-CHOLESTEROL {[id number]) Desirable range <100 mg/dL for patients with CHD or diabetes and <70 mg/dL for diabetic patients with known heart disease. CHOL/HDL Ratio 4.7 < OR = 5.0 (calc) [facility] Comment:{CHOL/HDLC RATIO {[id number]) Cholesterol Non-HDL 130 mg/dL (calc) [facility] Comment: {NON HDL CHOLESTEROL {[id number]) Target for non-HDL cholesterol is 30 mg/dL higher than LDL cholesterol target. 12/24/2013 2:28 PM EDT 12/24/2013 9:41 PM EDT Narrative Resulting Agency Comment [id number] us Virgil Arellano MD LABORATORY Final Result [facility] [address] [place] [address] * BASIC METABOLIC PANEL WITH (GFR) (12/24/2013 2:28 PM EDT) Glucose 92 65 - 99 mg/dL [facility] Comment: {GLUCOSE {[id number]) ? Fasting reference interval Urea Nitrogen Blood (BUN) 11 7 - 25 mg/dL [facility] Comment:{UREA NITROGEN (BUN) {[id number]) Creatinine 0.68 0.50 - 1.10 mg/dL [facility] Comment:{CREATININE {[id number]) GFR 125 > OR = 60 mL/min/1. 73m2 [facility] Comment:{eGFR NON-AFR. AMERI CAN {[id number]) GFR () 145 > OR = 60 mL/min/1. 73m2 [facility] Comment:{eGFR AMERIC AN {[id number]) BUN/Creatinine Ratio NOT APPLICABLE 6 - 22 (calc) [facility] Comment:{BUN/CREATININE RATI O {[id number]) Sodium 139 135 - 146 mmol/L [facility] Comment:{SODIUM {[id number]) Potassium 4.1 3.5 - 5.3 mmol/L [facility] Comment:{POTASSIUM {[id number]) Chloride 106 98 - 110 mmol/L [facility] Comment:{CHLORIDE {[id number]) Carbon dioxide 24 19 - 30 mmol/L [facility] Comment:{CARBON DIOXIDE {[id number]) Calcium 9.1 8.6 - 10.2 mg/dL [facility] Comment:{CALCIUM {[id number]) 12/24/2013 2:28 PM EDT 12/24/2013 9:41 PM EDT Narrative [facility] - 12/24/2013 11:54 PM EDT Please note that this estimated [...] needs for GFR calculation. Resulting Agency Comment [id number] us Virgil Arellano MD LABORATORY Final Result [facility] [address] [place] [address] * (ABNORMAL) CBC (H/H, RBC, INDICES,WBC, PLT) (12/24/2013 2:28 PM EDT) WBC 14.6(H) 3.8 - 10.8 Thousand/u L [facility] Comment:{WHITE BLOOD CELL CO UNT {[id number]) RBC 4.61 3.80 - 5.10 Million/uL [facility] Comment:{RED BLOOD CELL COUN T {[id number]) Hemoglobin 14.6 11.7 - 15.5 g/dL [facility] Comment:{HEMOGLOBIN {[id number]) Hematocrit 42.8 35.0 - 45.0 % [facility] Comment:{HEMATOCRIT {[id number]) MCV 93.0 80.0 - 100.0 fL [facility] Comment:{MCV {[id number]) MCH 31.7 27.0 - 33.0 pg [facility] Comment:{MCH {[id number]) MCHC 34.1 32.0 - 36.0 g/dL [facility] Comment:{MCHC {[id number]) RDW 13.6 11.0 - 15.0 % [facility] Comment:{RDW {[id number]) PLT 356 140 - 400 Thousand/u L [facility] Comment:{PLATELET COUNT {[id number]) 12/24/2013 2:28 PM EDT 12/24/2013 9:41 PM EDT Narrative Resulting Agency Comment [id number] us Virgil Arellano MD LAB SAME DAY RESULT Final Res ult [facility] [address] [place] [address] documented in this encounter Visit Diagnoses Diagnosis Routine history and physical examination of adult Routine general medical examination at a health care facility Hyperlipidemia Other and unspecified hyperlipidemia Other and unspecified hyperlipidemia documented in this encounter Care Teams Dermatology Technician Relationship Specialty Start Date End Date Virgil Arellano MD [address] [place] [address] PCP - General 11/11/05 08/19/16 Shanice Deleon MD [address] [place] [address] PCP - General Family Medicine 08/20/16 10/25/16 Virgil Arellano MD [address] [place] [address] PCP - General Family Medicine 10/26/16 07/04/17 documented as of this encounter
--- OUTSIDE RECORDS SUMMARY | 2024-10-10 00:35 | XMS_ITS | Encounter Summary ---
Author Organization [facility] Address [address] [place] [address] Care Team Providers Care Soft Work Cigar Machine Operator Name Role Phone Virgil Arellano MD Primary Care Provider [phone] Shanice Deleon MD Primary Care Provider [phone] Virgil Arellano MD Primary Care Provider [phone] Encounter Details Date Type Department Care Team (Late st Contact Info) Description 12/06/2011 [facility] Only [address] [phone] Virgil Arellano MD [address] [place], [place] [phone] Social History Tobacco Use Types Packs/Day Years [...] of this encounter Procedures * Due to [place] state law, this organization might not be sharing negative HIV tests. Procedure Name Priority Date/Time Associated Diagnosis Comments ASPARTATE AMINOTRANSFERASE (AST), SERUM Routine 12/06/2011 10:38 AM EDT Other and unspecified hyperlipidemia TSH, 3RD GENERATION Routine 12/06/2011 1 0:38 AM EDT Hypothyroidism documented in this encounter Results * Due to [place] state law, this organization might not be sharing negative HIV tests. * ASPARTATE AMINOTRANSFERASE (AST), SERUM (12/06/2011 10:38 AM EDT) AST (SGOT) 16 12 - 32 U/L [facility] Comment:{AST {[id number]) 12/06/2011 10:3 8 AM EDT 12/06/2011 7:07 PM EDT Narrative Resulting Agency Comment [id number] Virgil Arellano MD LAB SAME DAY RESULT Final Res ult Performing Organization Address [facility] Co de Phone Number [facility] [address] [place] [address] * TSH, 3RD GENERATION (12/06/2011 10:38 AM EDT) TSH 1.53 mIU/L [facility] Comment: {TSH {[id number]) Reference Range 1-19 Years ??0.50-4.30 ? Ranges First trimester ?? 0.20-4.70 Second trimester ??0.30-4.10 Third trimester ?? 0.40-2.70 12/06/2011 10:3 8 AM EDT 12/06/2011 7:07 PM EDT Narrative Resulting Agency Comment [id number] Virgil Arellano MD LABORATORY Final Result Performing Organization Address [facility] Co de Phone Number [facility] [address] [place] [address] documented in this encounter Visit Diagnoses Diagnosis Hypothyroidism Unspecified hypothyroidism Other and unspecified hyperlipidemia documented in this encounter Care Teams Soft Work Cigar Machine Operator Relationship Specialty Start Date End Date Virgil Arellano MD [address] [place] [address] PCP - General 11/11/05 08/19/16 Shanice Deleon MD [address] [place] [address] PCP - General Family Medicine 08/20/16 10/25/16 Virgil Arelalno MD [address] [place] [address] PCP - General Family Medicine 10/26/16 07/04/17 documented as of this encounter
--- OUTSIDE RECORDS SUMMARY | 2024-10-10 00:35 | XMS_ITS | Encounter Summary ---
Author Organization [facility] Address [address] [place] [address] Care Team Providers Care Hand Cigar Making Supervisor Name Role Phone Virgil Arellano MD Primary Care Provider [phone] Shanice Deleon MD Primary Care Provider [phone] Virgil Arellano MD Primary Care Provider [phone] Encounter Details Date Type Department Care Team (Late st Contact Info) Description 12/24/[address] Orders [address] [facility] [address] [place] [phone] Mercedes Best PA Social History Tobacco Use [...] Progress Notes * Rita Montero LPN - 12/26/2013 11:11 AM EDTQuick Note: See telephone note. * Mercedes Best PA - 12/26/2013 8:47 AM EDTAissatou Note: Please advise pt that std testing positive for hsv 1(cold sores) documented in this encounter Plan of Treatment Not on file documented as of this encounter Procedures * Due to [place] [employer] law, this organization might not be sharing negative HIV tests. Procedure Name Priority Date/Time Associated Diagnosis Comments CHLAMYDIA TRACHOMATIS/N. GONORRHOEAE (GC) RNA, TMA (URINE) Routine 12/24/2013 2:28 PM EDT Screen for STD (sexually transmitted disease) HEPATITIS B SURFACE ANTIGEN Routine 12/24/2013 2:28 PM EDT Screen for STD (sexually transmitted disease) HEPATITIS C AB WITH REFLEX TO RNA PCR, SERUM Routine 12/24/2013 2:28 PM EDT Screen for STD (sexually transmitted disease) HEPATITIS B CORE ANTIBODY, TOTAL, SERUM Routine 12/24/2013 2:28 PM EDT Screen for STD (sexually transmitted disease) HSV 1 AND 2 IGG HERPESELECT SPECIFIC ANTIBODY Routine 12/24/2013 2:28 PM EDT Screen for STD (sexually transmitted disease) RPR, (RAPID PLASMIN REAGIN) WITH REFLEX TO FTA, DIAGNOSTIC Routine 12/24/2013 2:28 PM EDT Screen for STD (sexually transmitted disease) HCG, URINE,QL Routine 12/24/2013 2:28 PM EDT HCG, TOTAL, QL Routine 12/24/2013 2:28 PM EDT documented in this encounter Results * Due to [place] [employer] law, this organization might not be sharing negative HIV tests. * HCG, TOTAL, QL (12/24/2013 2:28 PM EDT) HCG, Qualitative (Screen) NEGATIVE [facility] Comment: {HCG, TOTAL, QL {[id number]) Reference Range Non-: Negative : ? Positive 12/24/2013 2:28 PM EDT 12/24/2013 9:45 PM EDT Narrative Resulting Agency Comment [id number] Virgil Arellano MD LAB SAME DAY RESULT Final Res ult Performing Organization Address [place]/[facility] de Phone Number [facility] [address] [place] [address] * HCG, (HUMAN CHORIONIC GONADOTROPIN), URINE, QUALITATIVE (12/24/2013 2:28 PM EDT) HCG, Qualitative, Urine NEGATIVE NEGATIVE [facility] Comment:{HCG, QL, URINE {[id number]) 12/24/2013 2:28 PM EDT 12/24/2013 9:45 PM EDT Narrative Resulting Agency Comment [id number] us Virgil Arellano MD LAB SAME DAY RESULT Final Res ult Performing Organization Address [facility] de Phone Number [facility] [address] [place] [address] * RPR, (RAPID PLASMIN REAGIN) WITH REFLEX TO FTA, DIAGNOSTIC (12/24/2013 2:28 PM EDT) Reagin Ab NON-REACT RASHAUN NON-REACT RASHAUN [facility] Comment:{RPR (DX) W/REFL TIT ER AND CONFIRMATORY TESTING {[id number]) 12/24/2013 2:28 PM EDT 12/24/2013 9:45 PM EDT Narrative Resulting Agency Comment [id number] us Virgil Arellano MD LABORATORY Final Result Performing Organization Address [place] de Phone Number [facility] [address] [place] [address] * (ABNORMAL) HSV 1 AND 2 IGG HERPESELECT SPECIFIC ANTIBODY (12/24/2013 2:28 PM EDT) Herpes Simplex Virus 1 IgG 4.88(H) [facility] Comment:{HSV 1 IGG TYPE SPEC IFIC AB {[id number]) Herpes simplex virus 2 Ab.IgG <0.90 [facility] Comment: {HSV 2 IGG TYPE SPECIFIC AB {[id number]) ?Value ?Interpretation ?----- ?<0.90 ?Negative ?0.90-1.10 ?Equivocal [...] for pediatric populations, immunocompromised patients, or screening. 12/24/2013 2:28 PM EDT 12/24/2013 9:45 PM EDT Narrative Resulting Agency Comment [id number] us Virgil Arellano MD LABORATORY Final Result [facility] [address] [place] [address] * HEPATITIS C ANTIBODY, SERUM (12/24/2013 2:28 PM EDT) Hepatitis C virus Ab NON-REACTI VE NON-REACT RASHAUN [facility] Comment:{HEPATITIS C ANTIBOD Y {[id number]) Hepatitis C virus Ab Signal/Cutoff 0.02 <1.00 [facility] Comment:{SIGNAL TO CUT-OFF { [id number]) 12/24/2013 2:28 PM EDT 12/24/2013 9:45 PM EDT Narrative Resulting Agency Comment [id number] Virgil Arellano MD LABORATORY Final Result Performing Organization Address [place]/[facility] Co de Phone Number [facility] [address] [place] [address] * HEPATITIS B CORE ANTIBODY, TOTAL, SERUM (12/24/2013 2:28 PM EDT) Hepatitis B virus core Ab NON-REACTI VE NON-REACT RASHAUN [facility] Comment:{HEPATITIS B CORE AB TOTAL {[id number]) 12/24/2013 2:28 PM EDT 12/24/2013 9:45 PM EDT Narrative Resulting Agency Comment [id number] Virgil Arellano MD LABORATORY Final Result Performing Organization Address [place] de Phone Number [facility] [address] [place] [address] * HEPATITIS B SURFACE ANTIGEN (12/24/2013 2:28 PM EDT) Pathologist [facility] Hepatitis B virus surface Ag NON-REACTI VE NON-REACT RASHAUN [facility] Comment:{HEPATITIS B SURFACE ANTIGEN {[id number]) 12/24/2013 2:28 PM EDT 12/24/2013 9:45 PM EDT Narrative Resulting Agency Comment [id number] Virgil Arellano MD LABORATORY Final Result Performing Organization Address [place] de Phone Number [facility] [address] [place] [address] * CHLAMYDIA TRACHOMATIS/N. GONORRHOEAE (GC) RNA, TMA (URINE) (12/24/2013 2:28 PM EDT) Chlamydia trachomatis rRNA NOT DETECTED NOT DETECTED [facility] Comment:{CHLAMYDIA TRACHOMAT IS RNA, TMA {[id number]) Neisseria Gonorrhoeae rRNA NOT DETECTED NOT DETECTED [facility] Comment:{NEISSERIA GONORRHOE AE RNA, TMA {[id number]) COMMENT SEE NOTE [facility] Comment: {COMMENT {[id number]) This test was performed using the APTIMA COMBO2 Assay ([employer] The analytical performance characteristics of this assay, when used to test SurePath specimens have been determined by [employer] [facility]. 12/24/2013 2:28 PM EDT 12/24/2013 9:45 PM EDT Narrative Resulting Agency Comment [id number] us Virgil Arellano MD LABORATORY Final Result Performing Organization Address City/State/[facility] Co de Phone Number [facility] [address] [place] [address] documented in this encounter Visit Diagnoses Diagnosis Screen for STD (sexually transmitted disease) Screening examination for venereal disease (HHS) state, incidental documented in this encounter Care Teams Hand Cigar Making Supervisor Relationship Specialty Start Date End Date Virgil Arelalno MD [address] [place] [address] PCP - General 11/11/05 08/19/16 Shanice Deleon MD [address] [place] [address] PCP - General Family Medicine 08/20/16 10/25/16 Virgil Arellano MD [address] [place] [address] PCP - General Family Medicine 10/26/16 07/04/17 documented as of this encounter
--- OUTSIDE RECORDS SUMMARY | 2024-10-10 00:35 | XMS_ITS | Encounter Summary ---
Author Organization [facility] Address [address] [place] [address] Care Team Providers Care Mold Cooler Name Role Phone Virgil Arellano MD Primary Care Provider [phone] Reason for Visit * Reason Comments E-prescribing Refill Request Encounter Details Date Type Department Care Team (Late st Contact Info) Description 06/06/[address] [facility] [address] [place] [phone] Daniel Woo NP [address] [place] [address] E-prescribing Refill Request Social History Tobacco Use Types [...] encounter Miscellaneous Notes * Telephone Encounter - Daniel Woo NP - 06/06/2017 1:41 PM EDT Pt no-showed CPE, needs CPE for future refills. Thanks * Telephone Encounter - Jeni Polk - 06/06/2017 1:37 PM EDT Any special requests or concerns? none Faxed/E-prescribed medication renewal request(s) for Franck Rome 26 y.o. female received from pharmacy. Verified and Confirmed pharmacy for patient. Last CPE with this specialty: 04/15/2015 Last OV with this specialty: 06/21/2016 Next OV: No future appointments. Pertinent lab results: Lab Results Component Value Date SODIUM 140 07/26/2016 POTASSIUM 3.8 07/26/2016 CHLOR 103 07/26/2016 CO2 23 07/26/2016 BUN 22 07/26/2016 CREATININE 0.81 07/26/2016 GFR 102.4 07/26/2016 GLUCOSE 85 07/26/2016 OLIVIA 9.7 07/26/2016 An open order for Basic exists. Testing recommended a minimum of yearly for chronic therapy . Based on last lab testing intervals, 3 month supply suggested for potassium, diuretics, SEJAL inhibitors, ARBs and bone density medications. Allergies: Fluoxetine BP Readings from Last 1 Encounters: 06/21/16 126/80 Patient Active Problem List Diagnosis Date Noted ??? Need for HPV vaccination 02/09/2016 ??? HSV infection 02/09/2016 HSV 1 and HSV 2 seropositive see epic 07/2015 ??? Tobacco use 04/15/2015 Smokes 1/2 ppd x 7 years. Counseled on smoking cessation. ??? Morbid obesity (HCC) 04/15/2015 Encouraged weight loss, exercise, dietary changes. ??? LSIL (low grade squamous intraepithelial lesion) on Pap smear 06/29/201406/2014 LSIL Plan:f/u in 1 year, due 06/2015 ??? GERD (gastroesophageal reflux disease) 06/20/2011 ??? Generalized anxiety disorder 09/28/2010 ??? Obesity 05/19/2010 ??? Hypertension 04/13/2010 ??? Dysmenorrhea 08/26/2009 ??? Hypothyroidism 08/03/2009 ??? OTHER AND UNSPECIFIED HYPERLIPIDEMIA 12/24/2007 Current Outpatient Prescriptions on File Prior to Visit Medication Sig Dispense Refill ??? Lisinopril 10 MG Tab Take 1 by mouth daily 30 Tab 1 ??? Ibuprofen 800 MG Tab TAKE 1 TABLET BY MOUTH THREE TIMES DAILY NEEDED FOR PAIN 90 Tab 6 ??? Escitalopram Oxalate 20 MG Tab 1 by mouth daily 90 Tab 3 ??? AmLODIPine Besylate 10 MG Tab TAKE ONE TABLET BY MOUTH ONCE DAILY 30 Tab 11 ??? Levothyroxine Sodium 75 MCG Tab TAKE ONE TABLET BY MOUTH ONCE DAILY 30 Tab 8 ??? Omeprazole 20 MG Tablet Delayed Response 1 by mouth daily before breakfast 30 Tab 3 ??? RaNITidine HCl 300 MG Tab 1 by mouth twice daily 60 Tab 5 documented in this encounter Plan of Treatment Not on file documented as of this encounter Goals Goal Patient Goal Type Associated Problems Recent Progress Patient-Stated? Author Blood Pressure < 140/90 Blood Pressure 126/80(2015 9:25 AM EDT) No Rica Early Quit smoking / using tobacco Lifestyle No Rica Early documented as of this encounter Visit Diagnoses Not on filedocumented in this encounter Care Teams Mold Cooler Relationship Specialty Start Date End Date Virgil Arellano MD [address] [place] [address] PCP - General Family Medicine 10/26/16 07/04/17 documented as of this encounter
--- OUTSIDE RECORDS SUMMARY | 2024-10-10 00:35 | XMS_ITS | Encounter Summary ---
Author Organization [facility] Address [address] [place] [address] Care Team Providers Care Cyber Forensics Analyst Name Role Phone Virgil Arellano MD Primary Care Provider [phone] Shanice Deleon MD Primary Care Provider [phone] Virgil Arellano MD Primary Care Provider [phone] Encounter Details Date Type Department Care Team (Late st Contact Info) Description 04/17/2012 Orders Only [address] [phone] Virgil Arellano MD [address] [place], [place] [address] Social History Tobacco Use Types Packs/Day Years [...] of this encounter Procedures * Due to [place] state law, this organization might not be sharing negative HIV tests. Procedure Name Priority Date/Time Associated Diagnosis Comments CBC INCLUDES DIFFERENTIAL AND PLATELET COUNT Routine 04/17/2012 11:10 AM EDT Routine history and physical examination of adult ASPARTATE AMINOTRANSFERASE (AST), SERUM Routine 04/17/2012 11:10 AM EDT Other and unspecified hyperlipidemia TSH, 3RD GENERATION Routine 04/17/2012 1 1:10 AM EDT Hypothyroidism documented in this encounter Results * Due to [place] [employer] law, this organization might not be sharing negative HIV tests. * ASPARTATE AMINOTRANSFERASE (AST), SERUM (04/17/2012 11:10 AM EDT) AST (SGOT) 15 12 - 32 U/L [facility] Comment:{AST {[id number]) 04/17/2012 11:1 0 AM EDT 04/17/2012 7:12 PM EDT Narrative Resulting Agency Comment [id number] us Virgil Arellano MD LAB SAME DAY RESULT Final Res ult Performing Organization Address City/State[facility] Co de Phone Number [facility] [address] [place] [address] * TSH, 3RD GENERATION (04/17/2012 11:10 AM EDT) TSH 1.80 mIU/L [facility] Comment: {TSH {[id number]) ? Reference Range ? 1-19 Years 0.50-4.30 ? Ranges ? First trimester ?? 0.26-2.66 ? Second trimester ??0.55-2.73 ? Third trimester ?? 0.43-2.91 04/17/2012 11:1 0 AM EDT 04/17/2012 7:12 PM EDT Narrative Resulting Agency Comment [id number] us Virgil Arellano MD LABORATORY Final Result [facility] [address] [place] [address] * CBC INCLUDES DIFFERENTIAL AND PLATELET COUNT (04/17/2012 11:10 AM EDT) WBC 10.3 3.8 - 10.8 Thousand/u L [facility] Comment:{WHITE BLOOD CELL CO UNT {[id number]) RBC 4.75 3.80 - 5.10 Million/uL [facility] Comment:{RED BLOOD CELL COUN T {[id number]) Hemoglobin 14.8 11.7 - 15.5 g/dL [facility] Comment:{HEMOGLOBIN {[id number]) Hematocrit 42.9 35.0 - 45.0 % [facility] Comment:{HEMATOCRIT {[id number]) MCV 90.3 80.0 - 100.0 fL [facility] Comment:{MCV {[id number]) MCH 31.2 27.0 - 33.0 pg [facility] Comment:{MCH {[id number]) MCHC 34.6 32.0 - 36.0 g/dL [facility] Comment:{MCHC {[id number]) RDW 12.9 11.0 - 15.0 % [facility] Comment:{RDW {[id number]) PLT 371 140 - 400 Thousand/u L [facility] Comment:{PLATELET COUNT {[id number]) MPV 8.6 7.5 - 11.5 fL [facility] Comment:{MPV {[id number]) Neutrophils # 6489 1500 - 7800 cells/uL [facility] Comment:{ABSOLUTE NEUTROPHIL S {[id number]) Lymphocytes # 2802 850 - 3900 cells/uL [facility] Comment:{ABSOLUTE LYMPHOCYTE S {[id number]) Monocytes # 474 200 - 950 cells/uL [facility] Comment:{ABSOLUTE MONOCYTES {[id number]) Eosinophils # 474 15 - 500 cells/uL [facility] Comment:{ABSOLUTE EOSINOPHIL S {[id number]) Basophils # 62 0 - 200 cells/uL [facility] Comment:{ABSOLUTE BASOPHILS {[id number]) Neutrophils % 63.0 % [facility] Comment:{NEUTROPHILS {[id number]) Lymphocytes % 27.2 % [facility] Comment:{LYMPHOCYTES {[id number]) Monocytes % 4.6 % [facility] Comment:{MONOCYTES {[id number]) Eosinophils % 4.6 % [facility] Comment:{EOSINOPHILS {[id number]) Basophils % 0.6 % [facility] Comment:{BASOPHILS {[id number]) 04/17/2012 11:1 0 AM EDT 04/17/2012 7:12 PM EDT Narrative Resulting Agency Comment [id number] us Virgil Arellano MD LAB SAME DAY RESULT Final Res ult Performing Organization Address City/State[facility] Co de Phone Number [facility] [address] [place] [address] documented in this encounter Visit Diagnoses Diagnosis Routine history and physical examination of adult Routine general medical examination at a health care facility Hypothyroidism Unspecified hypothyroidism Other and unspecified hyperlipidemia documented in this encounter Care Teams Cyber Forensics Analyst Relationship Specialty Start Date End Date Virgil Arellano MD [address] [place] [address] PCP - General 11/11/05 08/19/16 Shanice Deleon MD [address] [place] [address] PCP - General Family Medicine 08/20/16 10/25/16 Virgil Arellano MD [address] [place] [address] PCP - General Family Medicine 10/26/16 07/04/17 documented as of this encounter
--- OUTSIDE RECORDS SUMMARY | 2024-10-10 00:35 | XMS_ITS | Encounter Summary ---
Author Organization [facility] Address [address] [place] [address] Care Team Providers Care Regional Telecommunications Specialist Name Role Phone Virgil Arellano MD Primary Care Provider [phone] Shanice Deleon MD Primary Care Provider [phone] Virgil Arellano MD Primary Care Provider [phone] Encounter Details Date Type Department Care Team (Late st Contact Info) Description 03/13/2016 Orders Only [facility] [address] [place] [address] Virgil Arellano MD [address] [place] [id number] Social History Tobacco Use Types Packs/Day Years [...] of this encounter Procedures * Due to [place] [employer] law, this organization might not be sharing negative HIV tests. Procedure Name Priority Date/Time Associated Diagnosis Comments THYROID CASCADING REFLEX Routine 03/13/2016 1:27 PM EDT Hypothyroidism, unspecified type HEMOGLOBIN A1C Routine 03/13/2016 1:27 PM EDT Obesity, unspecified obesity severity, unspecified obesity type BASIC METABOLIC PANEL WITH (GFR) Routine 03/13/2016 1:27 PM EDT Essential hypertension documented in this encounter Results * Due to [place] [employer] law, this organization might not be sharing negative HIV tests. * HEMOGLOBIN A1C (03/13/2016 1:27 PM EDT) Hemoglobin A1C 5.3 <5.7 % of total Hgb [facility] Comment: {HEMOGLOBIN A1c {[id number]) According to ADA guidelines, hemoglobin A1c <7.0% represents optimal control in non- diabetic patients. Different metrics may apply to specific patient populations. Standards of Medical Care in Diabetes-2013. Diabetes Care. 2013;36:s11-s66 For the purpose of screening for the presence of diabetes <5.7% ? Consistent with the absence of diabetes 5.7-6.4% ?Consistent with increased risk for diabetes ?(prediabetes) >or=6.5% ?Consistent with diabetes This assay result is consistent with a decreased risk of diabetes. Currently, no consensus exists for use of hemoglobin A1c for diagnosis of diabetes for children. Estimated Average Glucose 111 mg/dL (calc) [facility] Comment:{MEAN PLASMA GLUCOSE {[id number]) 03/13/2016 1:27 PM EDT 03/13/2016 8:51 PM EDT Narrative [facility] - 03/13/2016 10:29 PM EDT NOTE: False elevation of potassium, phosphate and LDH as well as false decrease in glucose may be present; specimen may have been compromised in the pre-analytical processing phase. Resulting Agency Comment [id number] Virgil Arellano MD LABORATORY Final Result Performing Organization Address [facility] de Phone Number [facility] [address] [place] [address] * THYROID CASCADING REFLEX (03/13/2016 1:27 PM EDT) TSH 1.41 mIU/L [facility] Comment: {TSH {[id number]) ?Reference Range ?> or = 20 Years ??0.40-4.50 ? Ranges ?First trimester ?0.26-2.66 ?Second trimester ?? 0.55-2.73 ?Third trimester ?0.43-2.91 INTERPRETATION SEE NOTE [facility] Comment: {INTERPRETATION {[id number]) TSH within normal range. Consistent with euthyroid patient. Interference from heterophilic antibodies (more common) or autoantibody (less common) should be considered when the TSH value does not fit the clinical picture. TSH with HAMA Treatment (test code 34789) or TSH Antibody (test code 74889) may help identify such interferences. 03/13/2016 1:27 PM EDT 03/13/2016 8:51 PM EDT Narrative [facility] - 03/14/2016 2:56 AM EDT NOTE: False elevation of potassium, phosphate and LDH as well as false decrease in glucose may be present; specimen may have been compromised in the pre-analytical processing phase. Resulting Agency Comment [id number] Virgil Arellano MD LABORATORY Final Result Performing Organization Address [facility] de Phone Number [facility] [address] [place] [address] * BASIC METABOLIC PANEL WITH (GFR) (03/13/2016 1:27 PM EDT) Glucose 71 65 - 99 mg/dL [facility] Comment: {GLUCOSE {[id number]) ? Fasting reference interval Urea Nitrogen Blood (BUN) 14 7 - 25 mg/dL [facility] Comment:{UREA NITROGEN (BUN) {[id number]) Creatinine 0.80 0.50 - 1.10 mg/dL [facility] Comment:{CREATININE {[id number]) GFR 104 > OR = 60 mL/min/1. 73m2 [facility] Comment:{eGFR NON-AFR. AMERI CAN {[id number]) GFR () 120 > OR = 60 mL/min/1. 73m2 [facility] Comment:{eGFR AMERIC AN {[id number]) BUN/Creatinine Ratio NOT APPLICABLE 6 - (calc) [facility] Comment:{BUN/CREATININE RATI O {[id number]) Sodium 138 135 - 146 mmol/L [facility] Comment:{SODIUM {[id number]) Potassium 4.9 3.5 - 5.3 mmol/L [facility] Comment:{POTASSIUM {[id number]) Chloride 103 98 - 110 mmol/L [facility] Comment:{CHLORIDE {[id number]) Carbon dioxide 21 19 - 30 mmol/L [facility] Comment:{CARBON DIOXIDE {[id number]) Calcium 9.7 8.6 - 10.2 mg/dL [facility] Comment:{CALCIUM {[id number]) 03/13/2016 1:27 PM EDT 03/13/2016 8:51 PM EDT Narrative [facility] - 03/14/2016 1:00 AM EDT NOTE: False elevation of potassium, phosphate and LDH as well as false decrease in glucose may be present; specimen may have been compromised in the pre-analytical processing phase. Please note that this estimated GFR does [...] needs for GFR calculation. Resulting Agency Comment [id number] us Virgil Arellano MD LABORATORY Final Result [facility] [address] [place] [address] documented in this encounter Visit Diagnoses Diagnosis Essential hypertension Hypothyroidism, unspecified type Obesity, unspecified obesity severity, unspecified obesity type documented in this encounter Care Teams Regional Telecommunications Specialist Relationship Specialty Start Date End Date Virgil Arellano MD [address] [place] [address] PCP - General 11/11/05 08/19/16 Shanice Deleon MD [address] [place] [address] PCP - General Family Medicine 08/20/16 10/25/16 Virgil Arellano MD [address] [place] [address] PCP - General Family Medicine 10/26/16 07/04/17 documented as of this encounter
--- OUTSIDE RECORDS SUMMARY | 2024-10-10 00:35 | XMS_ITS | Encounter Summary ---
Author Organization [facility] Address [address] [place] [address] Care Team Providers Care Psychological Operations Officer Name Role Phone Virgil Arellano MD Primary Care Provider Shanice Deleon MD Primary Care Provider [phone] Virgil Arellano MD Primary Care Provider Encounter Details Date Type Department Care Team (Late st Contact Info) Description 04/15/[address] [facility] [address] [place] [phone] Ly Caballero MD [address] [place] [address] Social History Tobacco Use Types [...] encounter Progress Notes * Dina Rhoades - 04/19/2015 8:29 AM EDTQuick Note: Letter sent * Ly Caballero - 04/16/2015 1:36 AM EDTQuick Note: Neg ok to send letter documented in this encounter Plan of Treatment Not on file documented as of this encounter Goals Goal Patient Goal Type Associated Problems Recent Progress Patient-Stated? Author Blood Pressure < 140/90 Blood Pressure 126/80(2015 9:25 AM EDT) No Rica Early Quit smoking / using tobacco Lifestyle No Rica Early documented as of this encounter Procedures * Due to [place] [employer] law, this organization might not be sharing negative HIV tests. Procedure Name Priority Date/Time Associated Diagnosis Comments CHLAMYDIA TRACHOMATIS/N. GONORRHOEAE (GC) RNA, TMA (URINE) Routine 04/15/2015 11:49 AM EDT Routine screening for STI (sexually transmitted infection) documented in this encounter Results * Due to [place] [employer] law, this organization might not be sharing negative HIV tests. * CHLAMYDIA TRACHOMATIS/N. GONORRHOEAE (GC) RNA, TMA (URINE) (04/15/2015 11:49 AM EDT) Chlamydia trachomatis rRNA NOT DETECTED NOT DETECTED [facility] Comment:{CHLAMYDIA TRACHOMAT IS RNA, TMA {[id number]) Neisseria Gonorrhoeae rRNA NOT DETECTED NOT DETECTED [facility] Comment:{NEISSERIA GONORRHOE AE RNA, TMA {[id number]) COMMENT SEE NOTE [facility] Comment: {COMMENT {[id number]) This test was performed using the APTIMA COMBO2 Assay ([employer] The analytical performance characteristics of this assay, when used to test SurePath specimens have been determined by [facility]. 04/15/2015 11:4 9 AM EDT 04/15/2015 3:45 PM EDT Narrative Resulting Agency Comment [id number] Ly Caballero MD LABORATORY Final Re sult [facility] [address] [place] [address] documented in this encounter Visit Diagnoses Diagnosis Routine screening for STI (sexually transmitted infection) Screening examination for venereal disease documented in this encounter Care Teams Psychological Operations Officer Relationship Specialty Start Date End Date Virgil Arellano MD [address] [place] [address] PCP - General 11/11/05 08/19/16 Shanice Deleon MD [address] [place] [address] PCP - General Family Medicine 08/20/16 10/25/16 Virgil Arellano MD [address] [place] [address] PCP - General Family Medicine 10/26/16 07/04/17 documented as of this encounter
--- OUTSIDE RECORDS SUMMARY | 2024-10-10 00:35 | XMS_ITS | Encounter Summary ---
Author Organization [facility] Address [address] [place] [address] Care Team Providers Care Traffic Sign Erection Supervisor Name Role Phone Virgil Arellano MD Primary Care Provider [phone] Shanice Deleon MD Primary Care Provider [phone] Virgil Arellano MD Primary Care Provider [phone] Reason for Visit * Reason Onset Date Comments No Show 05/25/2015 Encounter Details Date Type Department Care Team (Late st Contact Info) Description 05/25/[address] [facility] [address] [place] [phone] Ely Arevalo PA [address] [place] [address] No Show Social History Tobacco Use Types [...] encounter Miscellaneous Notes * Telephone Encounter - Yeni Lozanothia - 05/25/2015 10:13 AM EDT Patient no showed their appointment for chin numbness last week. There was no error made [...] on filedocumented in this encounter Care Teams Traffic Sign Erection Supervisor Relationship Specialty Start Date End Date Virgil Arellano MD [address] [place] [address] PCP - General 11/11/05 08/19/16 Shanice Deleon MD [address] [place] [address] PCP - General Family Medicine 08/20/16 10/25/16 Virgil Arellano MD [address] [place] [address] PCP - General Family Medicine 10/26/16 07/04/17 documented as of this encounter
--- OUTSIDE RECORDS SUMMARY | 2024-10-10 00:35 | XMS_ITS | Encounter Summary ---
Author Organization [facility] Address [address] [place] [address] [address] Team Prov[address] Care Place Change Roof Bolter Name Role Phone Virgil Arellano MD Primary Care Provider [phone] Shanice Deleon MD Primary Care Provider [phone] Virgil Arellano MD Primary Care Provider [phone] Encounter Details Date Type Department Care Team (Late st Contact Info) Description 05/30/2006 Orders Only [address] [phone] Virgil Arellano MD [address] [place], [place] [phone] Social History Tobacco Use Types Packs/Day Years [...] of this encounter Procedures * Due to [place] [employer] law, this organization might not be sharing negative HIV tests. Procedure Name Priority Date/Time Associated Diagnosis Comments TSH, THYROTROPIN Same Day Results 05/30/2006 HYPOTHYROIDISM documented in this encounter Results * Due to [place] [employer] law, this organization might not be sharing negative HIV tests. * TSH, THYROTROPIN (05/30/2006) TSH, THYROTROPIN 4.1 0.3 - 5.5 UIU/ML [facility] (CLIA# [id number]) 05/30/2006 05/30/2006 9:1 3 PM EDT us Virgil Arellano MD LABORATORY Final Result [facility] (CLIA# [id number]) [address] [place] [address] documented in this encounter Visit Diagnoses Diagnosis HYPOTHYROIDISM- Primary Unspecified hypothyroidism documented in this encounter Care Teams Place Change Roof Bolter Relationship Specialty Start Date End Date Virgil Arellano MD [address] [place] [address] PCP - General 11/11/05 08/19/16 Shanice Deleon MD [address] [place] [address] PCP - General Family Medicine 08/20/16 10/25/16 Virgil Arellano MD [address] [place] [address] PCP - General Family Medicine 10/26/16 07/04/17 documented as of this encounter
--- OUTSIDE RECORDS SUMMARY | 2024-10-10 00:35 | XMS_ITS | Encounter Summary ---
Author Organization [facility] Address [address] [place] [address] Care Team Providers Care Concrete Finisher Apprentice Name Role Phone Virgil Arellano MD Primary Care Provider [phone] Encounter Details Date Type Department Care Team (Late st Contact Info) Description 05/31/[address] Orders [address] [facility] [address] [place] [phone] Daniel Woo NP [address] [place] [address] Social History Tobacco Use Types Packs/Day Years [...] as of this encounter Progress Notes * Daniel Woo NP - 06/04/2017 6:29 AM EDT Please inform pt of normal TSH. Thanks. documented in this encounter Plan of Treatment Not on file documented as of this encounter Goals Goal Patient Goal Type Associated Problems Recent Progress Patient-Stated? Author Blood Pressure < 140/90 Blood Pressure 126/80(2015 9:25 AM EDT) No Rica Early Quit smoking / using tobacco Lifestyle No Rica Early documented as of this encounter Procedures * Due to [place] [employer] law, this organization might not be sharing negative HIV tests. Procedure Name Priority Date/Time Associated Diagnosis Comments THYROID CASCADING REFLEX Routine 05/31/2017 2:57 PM EDT Hypothyroidism documented in this encounter Results * Due to [place] [employer] law, this organization might not be sharing negative HIV tests. * THYROID CASCADING REFLEX (05/31/2017 2:57 PM EDT) TSH 1.43 mIU/L [facility] Comment: ?Reference Range ?> or = 20 Years ??0.40-4.50 ? Ranges ?First trimester ?0.26-2.66 ?Second trimester ?? 0.55-2.73 ?Third trimester ?0.43-2.91 05/31/2017 2:57 PM EDT 05/31/2017 9:36 PM EDT Narrative Resulting Agency Comment [id number] Daniel Woo NP LABORATORY Final Result Performing Organization Address City/State/[facility] Co de Phone Number [facility] [address] [place] [address] documented in this encounter Visit Diagnoses Diagnosis Hypothyroidism Unspecified hypothyroidism documented in this encounter Care Teams Concrete Finisher Apprentice Relationship Specialty Start Date End Date Virgil Arellano MD [address] [place] [address] PCP - General Family Medicine 10/26/16 07/04/17 documented as of this encounter
--- OUTSIDE RECORDS SUMMARY | 2024-10-10 00:35 | XMS_ITS | Encounter Summary ---
Author Organization [facility] Address [address] [place] [address] Care Team Providers Care Shaper And Presser Name Role Phone Unavailable Primary Care Provider Unavailabl e Reason for Visit * Reason Comments E-prescribing Refill Request Encounter Details Date Type Department Care Team (Late st Contact Info) Description 07/16/[address] [facility] [address] [place] [phone] Daniel Woo, PATEL [address] [place] [address] E-prescribing Refill Request Social History Tobacco Use [...] Job Start Date Job End Date Melba araizasowmya Not on file Not on file Not [...]
--- OUTSIDE RECORDS SUMMARY | 2024-10-10 00:35 | XMS_ITS | Encounter Summary ---
Author Organization [facility] Address [address] [place] [address] Care Team Providers Care Fibre Composite Technician Name Role Phone Virgil Arellano MD Primary Care Provider [phone] Shanice Deleon MD Primary Care Provider [phone] Virgil Arellano MD Primary Care Provider [phone] Encounter Details Date Type Department Care Team (Late st Contact Info) Description 01/27/2007 Orders Only [facility] [address] [place] [phone] Virgil Arellano MD [address] [place] [address] Social History Tobacco Use Types Packs/Day Years [...] of this encounter Procedures * Due to [place] state law, this organization might not be sharing negative HIV tests. Procedure Name Priority Date/Time Associated Diagnosis Comments CULTURE, STREP SCREEN (GROUP A), THROAT Routine 01/27/2007 ACUTE PHARYNGITIS documented in this encounter Results * Due to [place] state law, this organization might not be sharing negative HIV tests. * (ABNORMAL) CULTURE, STREP SCREEN (GROUP A), THROAT (01/27/2007) Result(s) SEE TEXT(A) [facility] (CLIA# [id number]) Comment: SOURCE: THROAT LIGHT GROWTH OF BETA-HEMOLYTIC STREPTOCOCCUS, NOT GROUP A 01/27/2007 01/28/2007 12: 46 AM EDT us Virgil Arellano MD LABORATORY Final Result [facility] (CLIA# [id number]) [address] [place] [address] documented in this encounter Visit Diagnoses Diagnosis ACUTE PHARYNGITIS- Primary Acute pharyngitis documented in this encounter Care Teams Fibre Composite Technician Relationship Specialty Start Date End Date Virgil Arellano MD [address] [place] [address] PCP - General 11/11/05 08/19/16 Shanice Deleon MD [address] [place] [address] PCP - General Family Medicine 08/20/16 10/25/16 Virgil Arellano MD [address] [place] [address] PCP - General Family Medicine 10/26/16 07/04/17 documented as of this encounter
--- OUTSIDE RECORDS SUMMARY | 2024-10-10 00:35 | XMS_ITS | Encounter Summary ---
Author Organization [facility] Address [address] [place] [address] Care Team Providers Care Historic Preservationist Name Role Phone Unavailable Primary Care Provider Unavailabl e Reason for Visit * Reason Comments E-prescribing Refill Request Encounter Details Date Type Department Care Team (Late st Contact Info) Description 07/10/[address] [facility] [address] [place] [phone] Daniel Woo NP [address] [place] [address] E-prescribing Refill Request Social History Tobacco Use [...] Telephone Encounter - Daniel Woo NP - 07/11/2017 10:16 AM EST Per recent TM, pt is no longer a pt of Dr Arellano and has been seeing a new provider, no refills fromthis office. Thanks. * Telephone Encounter - Jeni Polk - 07/11/2017 10:01 AM EST Any special requests or concerns? none [...] SEJAL inhibitors, ARBs and bone density medications. Because this patient has not had an appointment in this department specialty in the last year and does not have one scheduled in the next 30 days , limit prescription refills to a one month supply pending provider review and/or appointment scheduling. Allergies: Fluoxetine BP Readings from Last 1 [...] Dispense Refill ??? Lisinopril 10 MG Tab TAKE 1 TABLET BY MOUTH ONCE DAILY 30 Tab 0 ??? Ibuprofen 800 MG Tab TAKE 1 [...] mouth daily before breakfast 30 Tab 3 documented in this encounter Plan of Treatment Not on file documented as of this encounter Goals Goal Patient Goal Type Associated Problems Recent Progress Patient-Stated? Author Blood Pressure < 140/90 Blood Pressure 126/80(2015 9:25 AM EDT) No Rica Early Quit smoking / using tobacco Lifestyle Rica Abraham documented as of this encounter Visit Diagnoses Not on filedocumented in this encounter
--- OUTSIDE RECORDS SUMMARY | 2024-10-10 00:35 | XMS_ITS | Encounter Summary ---
Author Organization [facility] Address [address] [place] [address] Care Team Providers Care Food Adviser Name Role Phone Virgil Arellano MD Primary Care Provider [phone] Shanice Deleon MD Primary Care Provider [phone] Virgil Arellano MD Primary Care Provider [phone] Encounter Details Date Type Department Care Team (Late st Contact Info) Description 04/15/[address] Orders [address] [address] [place] [phone] Ely Arevalo PA [address] [place] [address] Social History Tobacco Use Types Packs/Day Years [...] Progress Notes * Rita Montero LPN - 04/16/2015 9:43 AM EDTQuick Note: See telephone note. * Ely Arevalo PA - 04/16/2015 7:53 AM EDTQuick Note: Please inform Moose of normal blood counts, electrolytes. Lipid panel reveals slightly elevated cholesterol at 204. HDL, good cholesterol, slightly low at 32. Increased exercise will help increase this but this is partially genetic. Triglycerides elevated at 213. Please monitor diet to reduce high fat, high cholesterol and processed foods. Thyroid level is normal. documented in this encounter Plan of Treatment Not on file documented as of this encounter Goals Goal Patient Goal Type Associated Problems Recent Progress Patient-Stated? Author Blood Pressure < 140/90 Blood Pressure 126/80(2015 9:25 AM EDT) No Rica Early Quit smoking / using tobacco Lifestyle No Rica Early documented as of this encounter Procedures * Due to [place] [employer] law, this organization might not be sharing negative HIV tests. Procedure Name Priority Date/Time Associated Diagnosis Comments CBC INCLUDES DIFFERENTIAL AND PLATELET COUNT Routine 04/15/2015 11:49 AM EDT Screening for deficiency anemia THYROID STIMULATING HORMONE (TSH) WITH FREE T4 REFLEX, SERUM Routine 04/15/2015 11:49 AM EDT Hypothyroidism LIPID PANEL WITH REFLEX TO DIRECT LDL Routine 04/15/2015 11:49 AM EDT Screening for lipid disorders BASIC METABOLIC PANEL WITH (GFR) Routine 04/15/2015 11:49 AM EDT Screening for diabetes mellitus documented in this encounter Results * Due to [place] law, this organization might not be sharing negative HIV tests. * THYROID STIMULATING HORMONE (TSH) WITH FREE T4 REFLEX, SERUM (04/15/2015 11:49 AM EDT) TSH 1.14 mIU/L [facility] Comment: {TSH W/REFLEX TO FT4 {[id number]) ?Reference Range ?> or = 20 Years ??0.40-4.50 ? Ranges ?First trimester ?0.26-2.66 ?Second trimester ?? 0.55-2.73 ?Third trimester ?0.43-2.91 04/15/2015 11:4 9 AM EDT 04/15/2015 3:45 PM EDT Narrative Resulting Agency Comment [id number] Virgil Arellano MD LABORATORY Final Result [facility] [address] [place] [address] * (ABNORMAL) LIPID PANEL WITH REFLEX TO DIRECT LDL (04/15/2015 11:49 AM EDT) Cholesterol 204(H) 125 - 200 mg/dL [facility] Comment:{CHOLESTEROL, TOTAL {[id number]) HDL Cholesterol 32(L) > OR = 46 mg/dL [facility] Comment:{HDL CHOLESTEROL {[id number]) Triglyceride 213(H) <150 mg/dL [facility] Comment:{TRIGLYCERIDES {[id number]) LDL Cholesterol 129 <130 mg/dL (calc) [facility] Comment: {LDL-CHOLESTEROL {[id number]) Desirable range <100 mg/dL for patients with CHD or diabetes and <70 mg/dL for diabetic patients with known heart disease. CHOL/HDL Ratio 6.4(H) < OR = 5.0 (calc) [facility] Comment:{CHOL/HDLC RATIO {[id number]) Cholesterol Non-HDL 172(H) mg/dL (calc) [facility] Comment: {NON HDL CHOLESTEROL {[id number]) Target for non-HDL cholesterol is 30 mg/dL higher than LDL cholesterol target. 04/15/2015 11:4 9 AM EDT 04/15/2015 3:45 PM EDT Narrative Resulting Agency Comment [id number] Virgil Arellano MD LABORATORY Final Result [facility] [address] [place] [address] * BASIC METABOLIC PANEL WITH (GFR) (04/15/2015 11:49 AM EDT) Glucose 86 65 - 99 mg/dL [facility] Comment: {GLUCOSE {[id number]) ? Fasting reference interval Urea Nitrogen Blood (BUN) 16 7 - 25 mg/dL [facility] Comment:{UREA NITROGEN (BUN) {[id number]) Creatinine 0.80 0.50 - 1.10 mg/dL [facility] Comment:{CREATININE {[id number]) GFR 105 > OR = 60 mL/min/1. 73m2 [facility] Comment:{eGFR NON-AFR. AMERI CAN {[id number]) GFR () 121 > OR = 60 mL/min/1. 73m2 [facility] Comment:{eGFR AMERIC AN {[id number]) BUN/Creatinine Ratio NOT APPLICABLE 6 - (calc) [facility] Comment:{BUN/CREATININE RATI O {[id number]) Sodium 139 135 - 146 mmol/L [facility] Comment:{SODIUM {[id number]) Potassium 4.8 3.5 - 5.3 mmol/L [facility] Comment:{POTASSIUM {[id number]) Chloride 104 98 - 110 mmol/L [facility] Comment:{CHLORIDE {[id number]) Carbon dioxide 21 19 - 30 mmol/L [facility] Comment:{CARBON DIOXIDE {[id number]) Calcium 9.6 8.6 - 10.2 mg/dL [facility] Comment:{CALCIUM {[id number]) 04/15/2015 11:4 9 AM EDT 04/15/2015 3:45 PM EDT Narrative [facility] - 04/15/2015 6:25 PM EDT Please note that this estimated [...] needs for GFR calculation. Resulting Agency Comment [id number] Virgil Arellano MD LABORATORY Final Result [facility] [address] [place] [address] * (ABNORMAL) CBC INCLUDES DIFFERENTIAL AND PLATELET COUNT (04/15/2015 11:49 AM EDT) WBC 8.9 3.8 - 10.8 Thousand/u L [facility] Comment:{WHITE BLOOD CELL CO UNT {[id number]) RBC 4.60 3.80 - 5.10 Million/uL [facility] Comment:{RED BLOOD CELL COUN T {[id number]) Hemoglobin 14.5 11.7 - 15.5 g/dL [facility] Comment:{HEMOGLOBIN {[id number]) Hematocrit 42.8 35.0 - 45.0 % [facility] Comment:{HEMATOCRIT {[id number]) MCV 93.2 80.0 - 100.0 fL [facility] Comment:{MCV {[id number]) MCH 31.6 27.0 - 33.0 pg [facility] Comment:{MCH {[id number]) MCHC 33.8 32.0 - 36.0 g/dL [facility] Comment:{MCHC {[id number]) RDW 12.6 11.0 - 15.0 % [facility] Comment:{RDW {[id number]) PLT 332 140 - 400 Thousand/u L [facility] Comment:{PLATELET COUNT {[id number]) MPV 8.3 7.5 - 11.5 fL [facility] Comment:{MPV {[id number]) Neutrophils # 5465 1500 - 7800 cells/uL [facility] Comment:{ABSOLUTE NEUTROPHIL S {[id number]) Lymphocytes # 2421 850 - 3900 cells/uL [facility] Comment:{ABSOLUTE LYMPHOCYTE S {[id number]) Monocytes # 392 200 - 950 cells/uL [facility] Comment:{ABSOLUTE MONOCYTES {[id number]) Eosinophils # 525(H) 15 - 500 cells/uL [facility] Comment:{ABSOLUTE EOSINOPHIL S {[id number]) Basophils # 98 0 - 200 cells/uL [facility] Comment:{ABSOLUTE BASOPHILS {[id number]) Neutrophils % 61.4 % [facility] Comment:{NEUTROPHILS {[id number]) Lymphocytes % 27.2 % [facility] Comment:{LYMPHOCYTES {[id number]) Monocytes % 4.4 % [facility] Comment:{MONOCYTES {[id number]) Eosinophils % 5.9 % [facility] Comment:{EOSINOPHILS {[id number]) Basophils % 1.1 % [facility] Comment:{BASOPHILS {[id number]) 04/15/2015 11:4 9 AM EDT 04/15/2015 3:45 PM EDT Narrative Resulting Agency Comment [id number] us Virgil Arellano MD LAB SAME DAY RESULT Final Res ult Performing Organization Address City/State/[facility] Co de Phone Number [facility] [address] [place] [address] documented in this encounter Visit Diagnoses Diagnosis Screening for deficiency anemia Screening for other and unspecified deficiency anemia Screening for diabetes mellitus Screening for lipid disorders Hypothyroidism Unspecified hypothyroidism documented in this encounter Care Teams Food Adviser Relationship Specialty Start Date End Date Virgil Arellano MD [address] [place] [address] PCP - General 11/11/05 08/19/16 Shanice Deleon MD [address] [place] [address] PCP - General Family Medicine 08/20/16 10/25/16 Virgil Arellano MD [address] [place] [address] PCP - General Family Medicine 10/26/16 07/04/17 documented as of this encounter
--- OUTSIDE RECORDS SUMMARY | 2024-10-10 00:35 | XMS_ITS | Encounter Summary ---
Author Organization [facility] Address [address] [place] [address] Care Team Providers Care Rn Neurology Name Role Phone Virgil Arellano MD Primary Care Provider [phone] Shanice Deleon MD Primary Care Provider [phone] Virgil Arellano MD Primary Care Provider [phone] Encounter Details Date Type Department Care Team (Late st Contact Info) Description 01/29/2015 Orders Only [facility] [address] [place] [address] Virgil Arellano MD [address] [place], [place] [phone] Social History Tobacco Use Types Packs/Day Years [...] Progress Notes * Virgil Arellano MD - 02/01/2015 3:48 AM EDTQuick Note: Treated with Cipro. documented in this encounter Plan of Treatment Not on file documented as of this encounter Goals Goal Patient Goal Type Associated Problems Recent Progress Patient-Stated? Author Blood Pressure < 140/90 Blood Pressure 126/80(2015 9:25 AM EDT) No Rica Early Quit smoking / using tobacco Lifestyle No Rica Early documented as of this encounter Procedures * Due to [place] Step[place] law, this organization might not be sharing negative HIV tests. Procedure Name Priority Date/Time Associated Diagnosis Comments URINALYSIS, DIP ONLY STAT (All results called to provider) 01/29/2015 12:58 PM EDT UTI (lower urinary tract infection) CULTURE, URINE, ROUTINE Routine 01/29/2015 12:54 PM EDT UTI (lower urinary tract infection) URINALYSIS, MICROSCOPIC Routine 01/29/2015 12:54 PM EDT UTI (lower urinary tract infection) documented in this encounter Results * Due to [place] Step-[place] law, this organization might not be sharing negative HIV tests. * (ABNORMAL) URINALYSIS, DIP ONLY ( SITE STAT ONLY) (01/29/2015 12:58 PM EDT) COLOR (URINE) YELLOW [facility] (CLIA# [id number]) APPEARANCE (URINE) CLOUDY [facility] (CLIA# [id number]) SPECIFIC GRAVITY 1.020 1.001 - 1.035 [facility] (CLIA# [id number]) PH (URINE) 6.0 5.0 - 8.0 [facility] (CLIA# [id number]) PROTEIN (URINE) TRACE(A) Neg [facility] (CLIA# [id number]) GLUCOSE (URINE) NEG Neg [facility] (CLIA# [id number]) Ketones (Urine) NEG Neg [facility] (CLIA# [id number]) BILIRUBIN (URINE) NEG Neg [facility] (CLIA# [id number]) BLOOD (URINE) NEG Neg [facility] (CLIA# [id number]) WBC (URINE) 2+(A) Neg [facility] (CLIA# [id number]) NITRITE (URINE) NEG Neg [facility] (CLIA# [id number]) Urine specimen obtained by clean catch procedure (specimen) 01/29/2015 12:58 PM EDT Narrative [facility] (CLIA# [id number]) - 01/29/2015 1:01 PM EDT Micro and culture already ordered per provider. Virgil Arellano MD LAB SAME DAY RESULT Final Res ult [facility] (CLIA# [id number]) [address] [place] [address] * CULTURE, URINE, ROUTINE (01/29/2015 12:54 PM EDT) Bacteria culture (Urine) SEE NOTE [facility] Comment: {CULTURE, URINE, ROUTINE {[id number]) ??CULTURE, URINE, ROUTINE ??MICRO NUMBER: ?[id number] ??TEST STATUS: ? FINAL ??SPECIMEN SOURCE: ?? URINE ??SPECIMEN QUALITY: ??ADEQUATE ??RESULT: ?Multiple organisms present, each less than 10,000 ? CFU/mL. These organisms, commonly found on ? external and internal genitalia, are considered ? to be colonizers. No further testing performed. 01/29/2015 12:5 4 PM EDT 01/30/2015 1:48 AM EDT Narrative Resulting Agency Comment [id number] Virgil Arellano MD LABORATORY Final Result Performing Organization Address City/[facility]/ZIP Co de Phone Number [facility] [address] [place] [address] * (ABNORMAL) URINALYSIS, MICROSCOPIC (01/29/2015 12:54 PM EDT) WBC (Urine) 20-40(A) < OR = 5 /HPF [facility] Comment:{WBC {[id number]) RBC (Urine Sed) 3-10(A) < OR = 2 /HPF [facility] Comment:{RBC {[id number]) Epithelial cells.squamous (Urine sed) 6-10(A) < OR = 5 /HPF [facility] Comment:{SQUAMOUS EPITHELIAL CELLS {[id number]) Bacteria (Urine) FEW(A) NONE SEEN /HPF [facility] Comment:{BACTERIA {[id number]) Calcium oxalate crystals (Urine sed) FEW NONE OR FEW /HPF [facility] Comment:{CALCIUM OXALATE CRY STALS {[id number]) Hyaline casts (Urine sed) NONE SEEN NONE SEEN /LPF [facility] Comment:{HYALINE CAST {[id number]) 01/29/2015 12:5 4 PM EDT 01/30/2015 1:48 AM EDT Narrative Resulting Agency Comment [id number] us Virgil Arellano MD LAB SAME DAY RESULT Final Res ult Performing Organization Address [facility] Co de Phone Number [facility] [address] [place] [address] documented in this encounter Visit Diagnoses Diagnosis UTI (lower urinary tract infection) Urinary tract infection, site not specified documented in this encounter Care Teams Rn Neurology Relationship Specialty Start Date End Date Virgil Arellano MD [address] [place] [address] PCP - General 11/11/05 08/19/16 Shanice Deleon MD [address] [place] [address] PCP - General Family Medicine 08/20/16 10/25/16 Virgil Arellano MD [address] [place] [address] PCP - General Family Medicine 10/26/16 07/04/17 documented as of this encounter
--- OUTSIDE RECORDS SUMMARY | 2024-10-10 00:35 | XMS_ITS | Encounter Summary ---
Author Organization [facility] Address [address] [place] [address] Care Team Providers Care Recycle Driver Name Role Phone Virgil Arellano MD Primary Care Provider [phone] Shanice Deleon MD Primary Care Provider [phone] Virgil Arellano MD Primary Care Provider [phone] Encounter Details Date Type Department Care Team (Late st Contact Info) Description 03/07/2007 Orders Only [address] [phone] Virgil Arellano MD [address] [place], [place] [phone] Social History Tobacco Use Types Packs/Day Years [...] this encounter Procedures * Due to [place] law, this organization might not be sharing negative HIV tests. Procedure Name Priority Date/Time Associated Diagnosis Comments TSH, THYROTROPIN Routine 03/07/2007 Hypothyroidism documented in this encounter Results * Due to [place] law, this organization might not be sharing negative HIV tests. * TSH, THYROTROPIN (03/07/2007) TSH, THYROTROPIN 1.5 0.3 - 5.5 UIU/ML [facility] (CLIA# [id number]) 03/07/2007 03/07/2007 9:4 4 PM EDT us Virgil Arellano MD LABORATORY Final Result [facility] (CLIA# [id number]) [address] [place] [address] documented in this encounter Visit Diagnoses Diagnosis Hypothyroidism Unspecified hypothyroidism documented in this encounter Care Teams Recycle Driver Relationship Specialty Start Date End Date Virgil Arellano MD [address] [place] [address] PCP - General 11/11/05 08/19/16 Shanice Deleon MD [address] [place] [address] PCP - General Family Medicine 08/20/16 10/25/16 Virgil Arellano MD [address] [place] [address] PCP - General Family Medicine 10/26/16 07/04/17 documented as of this encounter
--- OUTSIDE RECORDS SUMMARY | 2024-10-10 00:35 | XMS_ITS | Encounter Summary ---
Author Organization [facility] Address [address] [place] [address] Care Team Providers Care Plumbing Engineer Name Role Phone Virgil Arellano MD Primary Care Provider Shanice Deleon MD Primary Care Provider [phone] Virgil Arellano MD Primary Care Provider Encounter Details Date Type Department Care Team (Late st Contact Info) Description 03/07/2016 Orders Only [facility] [address] [place] [address] Virgil Arellano MD [address] [place] [id number] Social History Tobacco Use Types Packs/Day Years [...] Quit smoking / using tobacco Lifestyle No Riac Early documented as of this encounter Visit Diagnoses Not on filedocumented in this encounter Care Teams Plumbing Engineer Relationship Specialty Start Date End Date Virgil Arellano MD [address] [place] [address] PCP - General 11/11/05 08/19/16 Shanice Deleon MD [address] [place] [address] PCP - General Family Medicine 08/20/16 10/25/16 Virgil Arellano MD [address] [place] [address] PCP - General Family Medicine 10/26/16 07/04/17 documented as of this encounter
--- OUTSIDE RECORDS SUMMARY | 2024-10-10 00:35 | XMS_ITS | Clinical Summary ---
Author Organization [facility] Address [address] [place] [address] Care Team Providers Care Medical Appointment Clerk Name Role Phone Unavailable Primary Care Provider Unavailabl e Allergies Active Allergy Reactions Criticality Noted Date Comments Fluoxetine Other 08/26/2009 Decreased appetite Medications * This document contains information received from the source organization and may not represent a complete record from that organization. Ibuprofen 800 MG Tab TAKE 1 TABLET BY MOUTH THREE TIMES DAILY NEEDED FOR PAIN 90 Tab 6 03/26/2017 Active Active Problems Problem Noted Date Diagnosed Date Need for HPV vaccination 02/09/2016 HSV infection 02/09/2016 Overview (02/09/2016): HSV 1 and HSV 2 seropositive see epic 07/2015 Tobacco use 04/15/2015 Overview (04/15/2015): Smokes 1/2 ppd x 7 years. Counseled on smoking cessation. Morbid obesity 04/15/2015 Overview (04/15/2015): Encouraged weight loss, exercise, dietary changes. LGSIL on Pap smear of cervix 06/29/2014 Overview (06/29/2021): 06/2014 LSIL Plan:f/u in 1 year, due 06/2015 Gastroesophageal reflux disease 06/20/2011 Overview (12/21/2020): Generalized anxiety disorder 09/28/2010 Obesity 05/19/2010 Hypertension 04/13/2010 Overview (12/25/2014): Dysmenorrhea 08/26/2009 Hypothyroidism 08/03/2009 Overview (12/25/2014): OTHER AND UNSPECIFIED HYPERLIPIDEMIA 12/24/2007 Overview (07/16/2015): Resolved Problems Problem Noted Date Diagnosed Date Resolved Date Anxiety 08/03/2009 09/28/2010 Immunizations Name Administration Dates Next Due Chicken Pox (Disease/Titer) 08/20/1994 DTaP 12/29/1997, 4,05/30/1993,04/04/1993,0 01/28/1993 HIB (PRP-T) 03/09/1994,05/30/1993,04/04/1993 ,01/28/1993 Hep B (pedi) 09/15/1993,04/04/1993,1992 MMR 12/29/1997,03/09/1994 Meningococcal ACWY (Menactra) 12/24/2007 OPV 12/29/1997,05/30/1993,04/04/1993 ,01/28/1993 PCV-13 03/15/2015 PPD/TST (Tuberculin Skin Test) 05/01/2016 Td (adult), adsorbed 04/12/2005 Tdap(Boostrix) 12/24/2007 Family History Medical History Relation Name Comments Asthma Father Heart Disorder Father Hypertension Father Hypertension Mother Asthma Sister Relation Name Status Comments Father Mother Sister Social History Tobacco Use Types Packs/Day Years Used Date Smoking Tobacco: Every Day Cigarettes Smokeless Tobacco: Never Tobacco Cessation:Ready to Q uit: No; Counseling Given: Yes Alcohol Use Standard Drinks/Week Comments No 0 [...] file Not on file Not on file Last Filed Vital Signs Vital Sign Reading Time Taken Comments Blood Pressure 126/80 06/21/2016 9:25 AM EDT Pulse 80 06/21/2016 9:25 AM EDT Temperature 37.1 ??C (98.7 ??F) 12/15/2015 5:23 PM ED T Respiratory Rate 18 12/15/2015 5:23 PM EDT Oxygen Saturation 100% 12/15/2015 5:23 PM EDT Inhaled Oxygen Concentration - - Weight 129 kg (285 lb) 09/17/2015 10:03 AM EST Height 170.2 cm (5' 7 ) 04/15/2015 11:22 AM EDT Body Mass Index 44.64 04/15/2015 11:22 AM EDT Plan of Treatment Health Maintenance Due Date Last Done Comments Pap Smear 06/18/2017 06/18/2014 DTaP/Tdap/Td (7 - Td or Tdap) 12/23/2017 12/24/2007, 04/12/2005, 12/29/1997, Additional history exists COVID-19 Vaccine ( season) 2024 Influenza (#1) 2024 Zoster (Shingrix) (1 of 2) 2042 Hep B Completed 09/15/1993, 03/20, 1992 Hib Completed 03/09/1994, 05/20, 04/04/1993, Additional history exists Meningococcal ACWY Aged Out 12/24/2007 No longer eligible based on patient's age to complete this topic Pneumococcal Aged Out 03/15/2015 No longer eligi ble based on patient's age to complete this topic Hepatitis C Screening Completed 08/09/2015 , 03/24/2014, 12/24/2013 HPV Vaccine Aged Out No longer eligi ble based on patient's age to complete this topic Hep A Aged Out No longer eligi ble based on patient's age to complete this topic Goals Goal Patient Goal Type Associated Problems Recent Progress Patient-Stated? Author Blood Pressure < 140/90 Blood Pressure 126/80(2015 9:25 AM EDT) No Rica Early Quit smoking / using tobacco Lifestyle No [facility] Early Procedures * Due to [place] state law, this organization might not be sharing negative HIV tests. Procedure Name Priority Date/Time Associated Diagnosis Comments HEPATITIS C AB WITH REFLEX TO RNA PCR, SERUM Routine 08/09/2015 12:56 PM EST Screen for STD (sexually transmitted disease) [facility] PAP REFLEX HPV Routine 06/18/2014 from Last 3 Months or Most Recently Relevant to Health Maintenance Results * Due to [place] state law, this organization might not be sharing negative HIV tests. * HEPATITIS C AB WITH REFLEX TO RNA PCR, SERUM (08/09/2015 12:56 PM EST) Hepatitis C virus Ab NON-REACTI VE NON-REACT RASHAUN [facility] Comment:{HEPATITIS C ANTIBOD Y {[id number]) Hepatitis C virus Ab Signal/Cutoff 0.03 <1.00 [facility] Comment:{SIGNAL TO CUT-OFF { [id number]) 08/09/2015 12:5 6 PM EST 08/09/2015 4:26 PM EST Narrative Resulting Agency Comment [id number] [facility] Final Result [facility] [address] [place] [address] * (ABNORMAL) [facility]??FPGS PAP??REFLEX HPV (06/18/2014) Clinical information Oral contraceptives [facility] Comment:{CLINICAL INFORMATIO N: {[id number]) Date last menstrual period [id number] [facility] Comment:{LMP: {[id number]) Date of previous PAP smear 1ST PAP [facility] Comment:{PREV. PAP: {[id number]) Date of previous biopsy NONE GIVEN [facility] Comment:{PREV. BX: {[id number]) Specimen source (Cvx/Vag) Vagina, Cervix, Endocervix [facility] Comment:{SOURCE: {[id number]) Statement of Adequacy (Cvx/Vag) Satisfactory for evaluation. Endocervical/trans formation zone component present. [facility] Comment:{STATEMENT OF ADEQUA CY: {[id number]) General categories (Cvx/Vag) EPITHELIAL CELL ABNORMALITY(A) [facility] Comment:{GENERAL CATEGORIZAT ION: {[id number]) Cytology, Pap Smear Low Grade Squamous Intraepithelial Lesion (LSIL)(A) [facility] Comment:{INTERPRETATION/RESU LT: {[id number]) Microorganism identified (Cvx/Vag) Fungal organisms morphologically consistent with Thuy spp.(A) [facility] Comment:{INFECTION: {[id number]) Cytology study comment (Cvx/Vag) This Pap test has been evaluated with computer assisted technology. [facility] Comment:{COMMENT: {[id number]) Advertising Sales Consultant (Cvx/Vag) [employer], [place](ASCP) [facility] Comment:{JOINT SUPERVISOR: { [id number]) Pathologist (Cvx/Vag) Belle Corbett M.D., Ph.D., Direct , Board Certified in Anatomic and Clinical Pathology and Cytopathology (electronic signature) Consulting Pathologist [facility]ology [address] [place] [address] [facility] Comment:{PATHOLOGIST: {[id number]) 06/18/2014 06/19/2014 11: 22 PM EDT Vida Howard CNM PATHOLOGY-INTERFACED Final Re sult [facility] [address] [place] [address] from Last 3 Months or Most Recently Relevant to Health Maintenance Insurance MEDICAID * Guarantor: FRANCK RIVERA Account Type Relation to Patient Date of Phone Billing Address [facility] 1990 [address] [place] [address] * Guarantor: [employer] Account Type Relation to Patient Date of Phone Billing Address [facility] [address] [place] [address]
--- NOTE | 2024-10-10 00:37 | PC.NURSE ---
pt has scabbs on her arms latoya and on her lower face around her mouth. pt states she picked a blackhead and now has soars. pt states her water is hard and thinks this is the cause of her mouth sores. left foot very dry cracking skin with redness to her joint of her left foot big toe.
[2024-10-10 00:47] LABS: INTERNATIONAL NORM RATIO 1.1 (0.9-1.1); Prothrombin Time 12.8 SEC (10.9-12.4)
[2024-10-10 00:53] LABS: Alanine Aminotransferase 45 U/L (0-31); Albumin Level 3.8 g/dL (3.5-5.0); Alkaline Phosphatase 93 U/L (39-117); Anion Gap 16 (12-20); Aspartate Amino Transferase 49 U/L (5-31); Bilirubin Total 0.3 mg/dL (0.0-1.0); Blood Urea Nitrogen 10 mg/dL (9-16); C Reactive Protein 2.55 mg/dL (< or = 0.50); Calcium 9.4 mg/dL (8.4-10.2); Carbon Dioxide 29 mmol/L (22-29); Chloride 100 mmol/L (96-108); Creatinine Clr Calc Pharmacy 126.1; Estimated Glomerular Filt Rate > 60; Glucose Random 84 mg/dL (60-115); Potassium 3.9 mmol/L (3.3-5.1); Sodium 141 mmol/L (135-145); Total Protein 8.4 g/dL (6.5-8.0)
[2024-10-10 00:57] LABS: B Type Natriuretic Peptide < 10 pg/mL (<100)
[2024-10-10 01:06] LABS: Erythrocyte Sedimentation Rate 26 MM/HR (0-20)
[2024-10-10] MEDS: cephALEXin 500 MG CAPSULE PO (01:45)
[2024-10-10] MEDS: Doxycycline Monohydrate 100 MG CAPSULE PO (01:45)
[2024-10-10 01:49] VITALS: BP 141/83; PULSE 97; RESP 16; TEMP 36.7; O2SAT 94
== END 2024-10-10 01:50 | disposition home or self-care (01) ==
PROVIDERS: Registered Nurse Emergency; Emergency Provider Internal Medicine
DX: L03.115 Cellulitis of right lower limb (principal); L03.116 Cellulitis of left lower limb; R60.0 Localized edema; Z79.899 Other long term (current) drug therapy; Z86.711 Personal history of pulmonary embolism; Z79.01 Long term (current) use of anticoagulants
CPT/HCPCS: 36415; 80053; 83880; 85025; 85610; 85652; 86140; 93971; 99284

== ENCOUNTER → 2024-10-09 16:56 | Outpatient (BNV) | payer MEDICAID, SELFPAY | PROVIDERS: Visit Provider Radiology Diagnostic Radiology | DX: M79.605 Pain in left leg (principal); R22.42 Localized swelling, mass and lump, left lower limb | CPT/HCPCS: 93971 ==